=== PATIENT | female | born 1960 | race Caucasian/White ===

== ENCOUNTER 2016-06-22 17:40 | Emergency (ER) | payer OTHER ==
[~2016-06-22] VITALS: Ht 172.7 cm; Wt 75.9 kg
[2016-06-22] VITALS (7 sets, daily range): BP systolic 101–106; BP diastolic 51–59; PULSE 78–89; RESP 20; TEMP 97.6; O2SAT 94–99
[~2016-06-22 17:40] MED LIST: CETI10 PO; CITA20 PO; DOCU1CAP39 PO; DUONI NEB; HYDR-3111 PO; LEVA500T PO; MAGN30S PO; METF500 PO; PRAV20 PO; PRED20 PO; ROBIACUDC PO; SYMB160A INH; THEO200T11 PO; Z.0.OXYGEN INH
[2016-06-22] MEDS ORDERED: MORPHINE SULFATE 4 MG/ML INJ IV PUSH ONE (18:00)
[2016-06-22] MEDS ORDERED: SODIUM CHLORIDE 0.9% FLUSH 10 ML FLUSH IVF PRN (18:00)
[2016-06-22] MEDS ORDERED: RESP: ALBUTEROL 2.5 MG/IPRATROPIUM 0.5 MG NEB (SCH) NEB ONE (18:00)
[2016-06-22 18:06] LABS: AUTOMATED NEUTROPHIL # 6.1 TH/MM3 (1.8-7.7); BASOPHIL # 0.1 TH/MM3 (0-0.2); BASOPHIL % 1.1 % (0.0-2.0); EOSINOPHIL # 0.1 TH/MM3 (0-0.4); HEMO FLAGS DIFF FINAL; LYMPH % 30.3 % (9.0-44.0); LYMPHOCYTE # 3.1 TH/MM3 (1.0-4.8); MEAN CELL VOLUME 90.6 FL (80.0-100.0); MEAN CORPUSCULAR HEMOGLOBIN 30.5 PG (27.0-34.0); MEAN CORPUSCULAR HGB CONC 33.6 % (32.0-36.0); MONO % 6.7 % (0.0-8.0); NEUT % 60.9 % (16.0-70.0); PLATELET COUNT 271 TH/MM3 (150-450); RED BLOOD COUNT 4.64 MIL/MM3 (4.00-5.30); WHITE BLOOD COUNT 10.1 TH/MM3 (4.0-11.0)
--- NOTE | 2016-06-22 18:13 | PD ---
HPI Chief Complaint: Respiratory Symptoms Time Seen by Provider: 17:47 Travel History International Travel<30 days: No Contact w/Intl Traveler<30days: No Traveled to known affect area: No History of Present Illness HPI Is a 56-year-old female with a history of COPD on 2 L of oxygen at home but only at night presents emergency Department with left-sided chest pain. Patient states that she was sitting at home when she took a deep breath she felt something pop on the left side of her chest causing excruciating pain since. On arrival the patient is saturating 88% on room air. She seems to be stenting the left side of her chest. Patient is a history of cough congestion fever nausea vomiting abdominal pain. Symptoms started just prior to arrival, she states severe. PFSH Past Medical History Hx Anticoagulant Therapy: No Arthritis: No Asthma: No Autoimmune Disease: No Anxiety: Yes Depression: No Heart Rhythm Problems: No Cancer: No Cardiovascular Problems: Yes High Cholesterol: Yes Chemotherapy: No Chest Pain: No Congestive Heart Failure: No COPD: Yes Cerebrovascular Accident: No Diabetes: Yes Patient Takes Glucophage: Yes Diminished Hearing: No Endocrine: Yes Gastrointestinal Disorders: No GERD: No Genitourinary: No Headaches: No Hiatal Hernia: No Heparin Induced Thrombocytopen: No Hypertension: No Immune Disorder: No Implanted Vascular Access Dvce: No Kidney Stones: No Musculoskeletal: Yes (right shoulder blood clot) Neurologic: No Psychiatric: No Reproductive: Yes (UTERINE AND OVARIAN CYSTS. ) Respiratory: Yes (COPD) Immunizations Current: Yes Migraines: Yes ( TAKES IMITREX) Radiation Therapy: No Renal Failure: No Seizures: No Sickle Cell Disease: No Sleep Apnea: Yes (O2 2/L NC HS) Thyroid Disease: No Ulcer: No Tetanus Vaccination: Unknown ?: Not Past Surgical History Abdominal Surgery: Yes (APPENDIX REMOVAL) AICD: No Appendectomy: Yes Arteriovenous Shunt: No Cardiac Surgery: No Section: Yes Ear Surgery: No Endocrine Surgery: No Eye Surgery: No Genitourinary Surgery: No Gynecologic Surgery: Yes (HYSTERECTOMY, CSECTION) Hysterectomy: Yes Insulin Pump: No Joint Replacement: No Neurologic Surgery: No Oral Surgery: Yes (ROOT CANAL) Pacemaker: No Thoracic Surgery: No Other Surgery: Yes Social History Alcohol Use: No Tobacco Use: No Substance Use: No Allergies-Medications (Allergen,Severity, Reaction): Coded Allergies: Cortisone (Verified Allergy, Severe, PASSES OUT, 3/15/16) *MDRO Multi-Drug Resistant Organism (Verified Adverse Reaction, Unknown, ) 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 of MRSA in 2012 MRSA PCR screen positive - 05/04/15 Reported Meds & Prescriptions Reported Meds & Active Scripts Active Percocet (Oxycodone-Acetaminophen) 10-325 mg Tab 1 Tab PO Q4H PRN Reported Duoneb (Ipratropium-Albuterol Neb) 0.5-2.5 Mg/3 Ml Neb 1 Nebule INH Q6HR NEB Proair Hfa 8.5 GM Inh (Albuterol Sulfate) 90 Mcg/Act Aer 2 Puff INH Q4-6H PRN 108 mcg/actuation Robaxin (Methocarbamol) 500 Mg Tab 500 Mg PO BID Citalopram (Citalopram Hydrobromide) 10 Mg Tab 10 Mg PO DAILY Theophylline CR (Theophylline) 200 Mg Tab 400 Mg PO DAILY Pravastatin 10 Mg Tab 10 Mg PO DAILY Vicodin Es (Hydrocodone-Acetaminophen) 7.5-300 Tab 1 Tab PO Q6H PRN Zyrtec Allergy (Cetirizine HCl) 10 Mg Cap 10 Mg PO DAILY Metformin (Metformin HCl) 500 Mg Tab 500 Mg PO BIDPC With meals Symbicort Inh (Budesonide/Formoterol Fumarate) 160-4.5 Mcg/Act Aero 2 Puff INH Q12HR Review of Systems Except as stated in HPI: all other systems reviewed are Neg Physical Exam Narrative GENERAL: Well-developed well-nourished, suffering spasms of pain in the left side. SKIN: Focused skin assessment warm/dry. HEAD: Atraumatic. Normocephalic. EYES: Pupils equal and round. No scleral icterus. No injection or drainage. ENT: No nasal bleeding or discharge. Mucous membranes pink and moist. NECK: Trachea midline. No JVD. CARDIOVASCULAR: Regular rate and rhythm. No murmur appreciated. Minimal left sided chest wall tenderness in the midaxillary line. 2+ bilateral equal pulses in all 4 extremity's. RESPIRATORY: No accessory muscle use. Clear to auscultation. Breath sounds equal bilaterally. Slightly decreased aeration. Sitting forward in a tripod position. GASTROINTESTINAL: Abdomen soft, non-tender, nondistended. Hepatic and splenic margins not palpable. MUSCULOSKELETAL: No obvious deformities. No clubbing. No cyanosis. No edema. NEUROLOGICAL: Awake and alert. No obvious cranial nerve deficits. Motor grossly within normal limits. Normal speech. PSYCHIATRIC: Appropriate mood and affect; insight and judgment normal. Data Data Last Documented VS Vital Signs Date Time Temp Pulse Resp B/P Pulse Ox O2 Delivery O2 Flow Rate FiO2 06/22/16 20:34 84 20 104/51 96 Nasal Cannula 4 06/22/16 17:56 97.6 Orders Electrocardiogram (06/22/16 17:47) Ckmb (Isoenzyme) Profile (06/22/16 17:47) Complete Blood Count With Diff (06/22/16 17:47) Comprehensive Metabolic Panel (06/22/16 17:47) Magnesium (Mg) (06/22/16 17:47) Prothrombin Time / Inr (Pt) (06/22/16 17:47) Act Partial Throm Time (Ptt) (06/22/16 17:47) Troponin I (06/22/16 17:47) Ecg Monitoring (06/22/16 17:47) Bilateral Bp Monitoring (06/22/16 17:47) Iv Access Insert/Monitor (06/22/16 17:47) Oximetry (06/22/16 17:47) Oxygen Administration (06/22/16 17:47) Sodium Chloride 0.9% Flush (Ns Flush) (06/22/16 18:00) Morphine Inj (Morphine Inj) (06/22/16 18:00) Albuterol-Ipratropium Neb (Duoneb Neb) (06/22/16 18:00) Chest, Single Ap (06/22/16 ) Cta Thor Abd Aorta W Iv C W3d (06/22/16 ) Hydromorphone Pf Inj (Dilaudid Pf Inj) (06/22/16 18:15) CKMB (06/22/16 17:50) CKMB% (06/22/16 17:50) Arterial Blood Gas (Abg) (06/22/16 ) Iohexol 350 Inj (Omnipaque 350 Inj) (06/22/16 19:09) Electrocardiogram (06/22/16 19:10) Labs Laboratory Tests Test 06/22/16 06/22/16 17:50 19:05 White Blood Count 10.1 TH/MM3 Red Blood Count 4.64 MIL/MM3 Hemoglobin 14.1 GM/DL Hematocrit 42.0 % Mean Corpuscular Volume 90.6 FL Mean Corpuscular Hemoglobin 30.5 PG Mean Corpuscular Hemoglobin 33.6 % Concent Red Cell Distribution Width 13.0 % Platelet Count 271 TH/MM3 Mean Platelet Volume 8.3 FL Neutrophils (%) (Auto) 60.9 % Lymphocytes (%) (Auto) 30.3 % Monocytes (%) (Auto) 6.7 % Eosinophils (%) (Auto) 1.0 % Basophils (%) (Auto) 1.1 % Neutrophils # (Auto) 6.1 TH/MM3 Lymphocytes # (Auto) 3.1 TH/MM3 Monocytes # (Auto) 0.7 TH/MM3 Eosinophils # (Auto) 0.1 TH/MM3 Basophils # (Auto) 0.1 TH/MM3 CBC Comment DIFF FINAL Differential Comment Prothrombin Time 10.0 SEC Prothromb Time International 0.9 RATIO Ratio Activated Partial 24.7 SEC Thromboplast Time Sodium Level 140 MEQ/L Potassium Level 4.0 MEQ/L Chloride Level 103 MEQ/L Carbon Dioxide Level 30.7 MEQ/L Anion Gap 6 MEQ/L Blood Urea Nitrogen 9 MG/DL Creatinine 0.72 MG/DL Estimat Glomerular Filtration 84 ML/MIN Rate Random Glucose 109 MG/DL Calcium Level 9.1 MG/DL Magnesium Level 2.2 MG/DL Total Bilirubin 0.3 MG/DL Aspartate Amino Transf 18 U/L (AST/SGOT) Alanine Aminotransferase 25 U/L (ALT/SGPT) Alkaline Phosphatase 81 U/L Total Creatine Kinase 119 U/L Creatine Kinase MB 1.6 NG/ML Troponin I LESS THAN 0.02 NG/ML Total Protein 7.4 GM/DL Albumin 4.0 GM/DL Blood Gas Puncture Site RT RADIAL Blood Gas Patient Temperature 98.6 Blood Gas HCO3 28 mmol/L Blood Gas Base Excess 3.0 mmol/L Blood Gas Oxygen Saturation 86 % Arterial Blood pH 7.37 Arterial Blood Partial 50 mmHG Pressure CO2 Arterial Blood Partial 64 mmHG Pressure O2 Arterial Blood Oxygen Content 16.2 Vol % Arterial Blood 5.6 % Carboxyhemoglobin Arterial Blood Methemoglobin 1.1 % Blood Gas Hemoglobin 13.4 G/DL Oxygen Delivery Device NASAL CANNULA Blood Gas Liter Flow 2 L/M MDM Medical Decision Making Medical Screen Exam Complete: Yes Emergency Medical Condition: Yes Interpretation(s) EKG shows sinus rhythm. The right bundle-branch block. QRS duration is 126. Borderline prolonged QTC 460. No obvious ST segment changes however interpretation of multiple leads is severely limited by artifact. Differential Diagnosis Rib fracture, dissection, COPD exacerbation, ACS seems less likely, hypoxia. Narrative Course Patient is roomed in the emergency department, she was given morphine 6 mg IV which did not significantly relieve her pain. She does have orders for her chest x-ray as well as a CT aorta which I think is fairly unlikely however does need exclusion. Patient was discussed with Dr. Rider at 1900 shift change to follow-up CAT scan results reassess patient and disposition appropriately. Scripts Oxycodone-Acetaminophen (Percocet)10-325 mg Tab1 Tab PO Q4H PRN (PAIN) #30 TAB Ref 0 Prov:Chano Rider MD 06/22/16 Nathan Brooks MD June 22, 2016 18:13
[2016-06-22 18:14] LABS: CHLORIDE 103 MEQ/L (98-107); SODIUM (NA) 140 MEQ/L (136-145)
[2016-06-22] MEDS ORDERED: HYDROmorphone HCL PF 1 MG/ML VIAL IV PUSH PRN (18:15)
[2016-06-22 18:17] LABS: ANION GAP 6 MEQ/L (5-15); BICARBONATE 30.7 MEQ/L (21.0-32.0); BLOOD UREA NITROGEN 9 MG/DL (7-18); MAGNESIUM 2.2 MG/DL (1.5-2.5)
[2016-06-22 18:19] LABS: APTT (PATIENT) 24.7 SEC (24.3-30.1); INTERNATIONAL NORMALIZED RATIO 0.9 RATIO
[2016-06-22] MEDS ORDERED: ALBUTEROL INH (18:19)
[2016-06-22] MEDS ORDERED: METF500T PO (18:19)
[2016-06-22] MEDS ORDERED: ROBA500T PO (18:19)
[2016-06-22] MEDS ORDERED: THEO200T4 PO (18:19)
[2016-06-22] MEDS ORDERED: PRAV10TA PO (18:19)
[2016-06-22] MEDS ORDERED: SYMB160A INH (18:19)
[2016-06-22] MEDS ORDERED: HYDR-3113 PO (18:19)
[2016-06-22] MEDS ORDERED: ZYRT10CA PO (18:19)
[2016-06-22] MEDS ORDERED: CITA10TA4 PO (18:19)
[2016-06-22] MEDS ORDERED: IPRATROPIUM INH (18:19)
[2016-06-22 18:20] LABS: ALT (GPT) 25 U/L (10-53)
[2016-06-22 18:21] LABS: AST (GOT) 18 U/L (15-37)
[2016-06-22] MEDS ORDERED: O2 INH (18:21)
[2016-06-22] MEDS ORDERED: ALBUAER3 INH (18:21)
[2016-06-22 18:22] LABS: TOTAL BILIRUBIN ADULT 0.3 MG/DL (0.2-1.0)
[2016-06-22 18:23] LABS: ALKALINE PHOSPHATASE 81 U/L (45-117); CREATINE KINASE 119 U/L (26-192)
[2016-06-22 18:29] LABS: GLOMERULAR FILTRATION RATE 84 ML/MIN (>89)
[2016-06-22 18:36] LABS: CKMB 1.6 NG/ML (0.5-3.6)
--- NOTE | 2016-06-22 18:57 | RADHPO ---
EXAM DATE/TIME: 06/22/2016 18:16 [facility] COMPARISON: CHEST SINGLE AP, May 04, 2015, 9:20. INDICATIONS : Patient has been short of breath today. She has had a cough for two days and has caused left sided ri b pain. MEDICAL HISTORY : Diabetes mellitus type II. SURGICAL HISTORY : Total shoulder,right ENCOUNTER: Initial ACUITY: 1 day PAIN SCORE: 10/10 LOCATION: Left Chest and rib. FINDINGS: A single view of the chest demonstrates the lungs to be symmetrically aerated without evidence of mas s, infiltrate or effusion. The cardiomediastinal contours are unremarkable. There is a right shoulde r prosthesis in place. There is a dextrocurvature of the lower thoracic spine. CONCLUSION: No acute disease. Germain Hewitt MD on June 22, 2016 at 18:54 Board Certified Radiologist. This report was verified electronically.
[2016-06-22] MEDS ORDERED: IOHEXOL 350 MG/ML 10 ML VIAL (for RAD DIAG) IV ONE (19:09)
[2016-06-22 19:16] LABS: BLOOD GAS CARBOXYHEMOGLOBIN 5.6 % (0-4); BLOOD GAS HCO3 28 mmol/L (22-26); BLOOD GAS METHEMOGLOBIN 1.1 % (0-2); BLOOD GAS O2 HGB SATURATION 86 % (90-100); BLOOD GAS OXYGEN CONTENT 16.2 Vol % (12.0-20.0); BLOOD GAS PCO2 50 mmHG (38-42); BLOOD GAS PO2 64 mmHG (61-120); BLOOD GAS TOTAL HGB 13.4 G/DL (12.0-16.0); CRITICAL VALUE YES; DRAW SITE RT RADIAL; LITER FLOW 2 L/M; NUMBER OF ARTERIAL PUNCTURES 1; OXYGEN DEVICE NASAL CANNULA; STAT YES; TEMP CORR TO 98.6; ULNAR PULSE Y
--- NOTE | 2016-06-22 19:35 | RADHPO ---
EXAM DATE/TIME: 06/22/2016 18:37 [facility] COMPARISON: CHEST SINGLE AP, June 22, 2016, 18:16. INDICATIONS : Left chest pain. Evaluate for aortic dissection. IV CONTRAST: 85 cc Omnipaque 350 (iohexol) IV RADIATION DOSE: 19.00 CTDIvol (mGy) MEDICAL HISTORY : Chronic obstructive pulmonary disease. Cardiovascular disease Diabetes mellitus type 2. SURGICAL HISTORY : Appendectomy. Hysterectomy. section. ENCOUNTER: Initial ACUITY: 2 days PAIN SCALE: 10/10 LOCATION: Left chest TECHNIQUE: Volumetric scanning was performed using a multi-row detector CT scanner. The data was post processed with a variety of visualization algorithms including full volume maximum intensity projection, multi -planar sliding thin slab reformation, curved planar reformation, and surface rendering techniques. Using automated exposure control and adjustment of the mA and/or kV according to patient size, radiat ion dose was kept as low as reasonably achievable to obtain optimal diagnostic quality images. FINDINGS: CHEST: There is no consolidation or pneumothorax. No concerning pulmonary nodule is visualized. There is e mphysematous change seen throughout the lungs. There some atelectasis at the posterior left lingula. No pleural fluid is present. There is a right shoulder prosthesis in place. MEDIASTINUM: No abnormally enlarged lymph nodes by CT criteria. No axillary or hilar abnormalities are identified. ABDOMEN: There is a 0.8 cm hyperenhancing mass seen in the left lobe of the liver. This is nonspecific. The sp elisha are free of focal defects. The gallbladder and pancreas demonstrate no abnormality. The adrenal glands appear diffusely thickened likely related to hypertrophy. The kidneys demonstrate no evidence of solid renal mass or hydronephrosis. No free fluid or abdominal masses are identified. No para-aort ic adenopathy is seen. Scattered colonic diverticula are seen PELVIS: No evidence of free fluid or pelvic mass. No abnormally enlarged inguinal or retroperitoneal lymph no bladimir are present. The bladder is unremarkable. THORACIC AORTA: The thoracic aortic root is normal with normal branching of the great vessels. There is no evidence of aneurysm or dissection. ABDOMINAL AORTA: The aorta is normal in caliber without aneurysm or dissection. There is minimal plaque at the abdomi nal aorta. The renal arteries are patent bilaterally. The proximal celiac and superior mesenteric ar teries are patent and normal in diameter. PELVIC VESSELS: The internal iliac and external iliac vessels are patent without aneurysm or stenosis. CONCLUSION: 1. No dissection is seen. There is mild plaque of the abdominal aorta without a significant stenosis or aneurysm. 2. Emphysematous change in the lungs. 3. 0.7 cm hyperenhancing mass in the left lobe of the liver. This is nonspecific. It could be followe d up with a MR or CT examination in 3-6 months. 4. Suspected adrenal gland hypertrophy. The adrenal glands appear symmetrically thickened. 5. Scattered colonic diverticula. Germain Hewitt MD on June 22, 2016 at 19:24 Board Certified Radiologist. This report was verified electronically.
--- NOTE | 2016-06-22 19:36 | PD ---
Physical Exam Time Seen by Provider: 19:[address] Brooks left this patient with me to check the results of the CT scan and make a disposition. Data Data Last Documented VS Vital Signs Date Time Temp Pulse Resp B/P Pulse Ox O2 Delivery O2 Flow Rate FiO2 06/22/16 19:31 98 Nasal Cannula 4 06/22/16 19:06 20 06/22/16 19:03 78 105/52 06/22/16 17:56 97.6 Orders Electrocardiogram (06/22/16 17:47) Ckmb (Isoenzyme) Profile (06/22/16 17:47) Complete Blood Count With Diff (06/22/16 17:47) Comprehensive Metabolic Panel (06/22/16 17:47) Magnesium (Mg) (06/22/16 17:47) Prothrombin Time / Inr (Pt) (06/22/16 17:47) Act Partial Throm Time (Ptt) (06/22/16 17:47) Troponin I (06/22/16 17:47) Ecg Monitoring (06/22/16 17:47) Bilateral Bp Monitoring (06/22/16 17:47) Iv Access Insert/Monitor (06/22/16 17:47) Oximetry (06/22/16 17:47) Oxygen Administration (06/22/16 17:47) Sodium Chloride 0.9% Flush (Ns Flush) (06/22/16 18:00) Morphine Inj (Morphine Inj) (06/22/16 18:00) Albuterol-Ipratropium Neb (Duoneb Neb) (06/22/16 18:00) Chest, Single Ap (06/22/16 ) Cta Thor Abd Aorta W Iv C W3d (06/22/16 ) Hydromorphone Pf Inj (Dilaudid Pf Inj) (06/22/16 18:15) CKMB (06/22/16 17:50) CKMB% (06/22/16 17:50) Arterial Blood Gas (Abg) (06/22/16 ) Iohexol 350 Inj (Omnipaque 350 Inj) (06/22/16 19:09) Labs Laboratory Tests Test 06/22/16 06/22/16 17:50 19:05 White Blood Count 10.1 TH/MM3 Red Blood Count 4.64 MIL/MM3 Hemoglobin 14.1 GM/DL Hematocrit 42.0 % Mean Corpuscular Volume 90.6 FL Mean Corpuscular Hemoglobin 30.5 PG Mean Corpuscular Hemoglobin 33.6 % Concent Red Cell Distribution Width 13.0 % Platelet Count 271 TH/MM3 Mean Platelet Volume 8.3 FL Neutrophils (%) (Auto) 60.9 % Lymphocytes (%) (Auto) 30.3 % Monocytes (%) (Auto) 6.7 % Eosinophils (%) (Auto) 1.0 % Basophils (%) (Auto) 1.1 % Neutrophils # (Auto) 6.1 TH/MM3 Lymphocytes # (Auto) 3.1 TH/MM3 Monocytes # (Auto) 0.7 TH/MM3 Eosinophils # (Auto) 0.1 TH/MM3 Basophils # (Auto) 0.1 TH/MM3 CBC Comment DIFF FINAL Differential Comment Prothrombin Time 10.0 SEC Prothromb Time International 0.9 RATIO Ratio Activated Partial 24.7 SEC Thromboplast Time Sodium Level 140 MEQ/L Potassium Level 4.0 MEQ/L Chloride Level 103 MEQ/L Carbon Dioxide Level 30.7 MEQ/L Anion Gap 6 MEQ/L Blood Urea Nitrogen 9 MG/DL Creatinine 0.72 MG/DL Estimat Glomerular Filtration 84 ML/MIN Rate Random Glucose 109 MG/DL Calcium Level 9.1 MG/DL Magnesium Level 2.2 MG/DL Total Bilirubin 0.3 MG/DL Aspartate Amino Transf 18 U/L (AST/SGOT) Alanine Aminotransferase 25 U/L (ALT/SGPT) Alkaline Phosphatase 81 U/L Total Creatine Kinase 119 U/L Creatine Kinase MB 1.6 NG/ML Troponin I LESS THAN 0.02 NG/ML Total Protein 7.4 GM/DL Albumin 4.0 GM/DL Blood Gas Puncture Site RT RADIAL Blood Gas Patient Temperature 98.6 Blood Gas HCO3 28 mmol/L Blood Gas Base Excess 3.0 mmol/L Blood Gas Oxygen Saturation 86 % Arterial Blood pH 7.37 Arterial Blood Partial 50 mmHG Pressure CO2 Arterial Blood Partial 64 mmHG Pressure O2 Arterial Blood Oxygen Content 16.2 Vol % Arterial Blood 5.6 % Carboxyhemoglobin Arterial Blood Methemoglobin 1.1 % Blood Gas Hemoglobin 13.4 G/DL Oxygen Delivery Device NASAL CANNULA Blood Gas Liter Flow 2 L/M [facility] Medical Record Reviewed: Yes Supervised Visit with MAGED: Yes Interpretation(s) The EKG shows sinus rhythm with rate of 72 and right bundle branch block but no acute change. The CBC is normal. The chest x-ray shows no acute disease. The coagulation profile is normal. The complete metabolic profile shows a GFR of 84 but is otherwise normal. The cardiac enzymes are normal. The blood gases on 2 L nasal cannula show pH 7.37, CO2 50, PO2 64 with O2 sat 86%. The carboxy hemoglobin level is 5.6. Differential Diagnosis Fractured rib, pneumothorax, dissecting aneurysm, pleuritic pain, hypoxemia, COPD with acute exacerbation Narrative Course I can completely and very easily reproduce the patient's pain by pressing over a rib on the lateral aspect of the chest wall. No crepitus, neither bony nor air is present. Impression: Chest wall pain, liver nodule Plan: The patient was told to repeat in 3-[address] to check on the status of the liver nodule mention on the CTA. She states she thinks she had this before and it was checked out and is not growing. She was offered admission because of pain but she declined, she wants to try to stay home and I offered to write her Percocet 10 for the pain. She is told to quit smoking. Diagnosis Primary Impression: Chest wall pain Additional Impressions: COPD (chronic obstructive pulmonary disease) Tobacco abuse Additional Instruction: As we discussed, discontinue smoking and follow-up with Dr. Tanner. Do not drink alcohol or drive on the Percocet 10. As we discussed, follow-up on that liver lesion, I gave you the results of all of your lab work and CAT scan results. Take this to your primary care doctor or Dr. Tanner. Med/Other Pt SpecificInfo: Prescription(s) given Scripts Oxycodone-Acetaminophen (Percocet)10-325 mg Tab1 Tab PO Q4H PRN (PAIN) #30 TAB Ref 0 Prov:Chano Rider MD 06/22/16 Disposition: 01 DISCHARGE HOME Condition: Stable Chano Rider MD June 22, 2016 19:36
[2016-06-22] MEDS ORDERED: PERC10TA27 PO (19:49)
--- NOTE | 2016-06-23 15:35 | EKG ---
Date Performed: 06/22/2016 Time Performed: 19:10:00 PTAGE: 56 years EKG: Sinus rhythm Right bundle branch block Abnormal ECG PREVIOUS TRACING : 06/22/2016 18.00 DOCTOR: Sivakumar Davis Interpretating Date/Time 06/23/2016 15:31:03
--- NOTE | 2016-06-23 15:37 | EKG ---
Date Performed: 06/22/2016 Time Performed: 18:00:18 PTAGE: 56 years EKG: Sinus rhythm Incomplete RBBB Right ventricular hypertrophy Abnormal ECG NO PREVIOUS TRACING DOCTOR: Sivakumar Davis Interpretating Date/Time 06/23/2016 15:32:20
[2016-06-23] MEDS ORDERED: IPRASOL INH (21:06)
== END 2016-06-22 20:36 | disposition home or self-care (01) ==
LOC: PHED 17:40
DX: R07.89 Other chest pain (principal); I45.19 Other right bundle-branch block; J44.9 Chronic obstructive pulmonary disease, unspecified; E11.9 Type 2 diabetes mellitus without complications; Z79.84 Long term (current) use of oral hypoglycemic drugs; Z79.899 Other long term (current) drug therapy; Z99.81 Dependence on supplemental oxygen; Z72.0 Tobacco use
CPT/HCPCS: 36600; 71010; 71275; 74174; 80053; 82550; 82552; 82805; 83735; 84484; 85025; 85610; 85730; 93005; 94664; 96374; 96375; 99284; J1170; J2270; Q9967

== ENCOUNTER 2016-07-10 03:29 | Inpatient (IN) | payer OTHER ==
[2016-07-10] VITALS (14 sets, daily range): BP systolic 97–124; BP diastolic 52–71; PULSE 65–100; RESP 16–24; TEMP 96.7–99.7; O2SAT 91–97
[~2016-07-10] VITALS: Ht 172.7 cm; Wt 77.1 kg
[~2016-07-10 03:29] MED LIST changes: +ALBUAER3 INH; -CETI10 PO; +CITA10TA4 PO; -CITA20 PO; -DOCU1CAP39 PO; -DUONI NEB; -HYDR-3111 PO; +HYDR-3113 PO; +IPRASOL INH; -LEVA500T PO; -MAGN30S PO; -METF500 PO; +METF500T PO; +PERC10TA27 PO; +PRAV10TA PO; -PRAV20 PO; -PRED20 PO; +ROBA500T PO; -ROBIACUDC PO; -THEO200T11 PO; +THEO200T4 PO; -Z.0.OXYGEN INH; +ZYRT10CA PO
[2016-07-10] MEDS: RESP: ALBUTEROL 2.5 MG/IPRATROPIUM 0.5 MG NEB (SCH) INH ×5 (03:43→21:08)
[2016-07-10] MEDS ORDERED: methylPREDNISolone SOD SUCC 125 MG/2 ML VIAL IVP ONE (03:45)
[2016-07-10] MEDS ORDERED: METF500T PO (03:52)
[2016-07-10] MEDS ORDERED: PRED5PAK2 PO (03:52)
[2016-07-10 03:55] LABS: AUTOMATED NEUTROPHIL # 8.3 TH/MM3 (1.8-7.7); BASOPHIL % 0.2 % (0.0-2.0); EOSINOPHIL % 0.3 % (0.0-4.0); HEMATOCRIT 43.6 % (35.0-46.0); HEMO FLAGS DIFF FINAL; LYMPH % 19.8 % (9.0-44.0); LYMPHOCYTE # 2.3 TH/MM3 (1.0-4.8); MEAN CORPUSCULAR HEMOGLOBIN 30.9 PG (27.0-34.0); MEAN CORPUSCULAR HGB CONC 33.2 % (32.0-36.0); MONO % 9.1 % (0.0-8.0); NEUT % 70.6 % (16.0-70.0); PLATELET COUNT 258 TH/MM3 (150-450); RED BLOOD COUNT 4.69 MIL/MM3 (4.00-5.30); WHITE BLOOD COUNT 11.7 TH/MM3 (4.0-11.0)
--- NOTE | 2016-07-10 03:56 | PD ---
HPI Chief Complaint: Respiratory Symptoms Time Seen by Provider: 03:35 Travel History International Travel<30 days: No Contact w/Intl Traveler<30days: No Traveled to known affect area: No History of Present Illness HPI 56-year-old female patient with history of COPD, recent visits to her nurse obgyn secondary to poorly controlled COPD over the last 2 months, has been on steroid medications and Levaquin which she just finished today. She states that she had worsening and respiratory problems last night, worsening shortness of breath, coughing. She is also complaining of left-sided chest wall pains. She denies any fevers or any other symptoms. She states she has used her nebulizer several times without significant improvement. Modifying Factors: None Associated Signs & Symptoms: Shortness of breath, left-sided chest wall pain Risk Factors: COPD, recent exacerbations PFSH Past Medical History Hx Anticoagulant Therapy: No Arthritis: No Asthma: No Autoimmune Disease: No Anxiety: Yes Depression: No Heart Rhythm Problems: No Cancer: No Cardiovascular Problems: Yes High Cholesterol: Yes Chemotherapy: No Chest Pain: No Congestive Heart Failure: No COPD: Yes Cerebrovascular Accident: No Diabetes: Yes Patient Takes Glucophage: Yes Diminished Hearing: No Endocrine: Yes Gastrointestinal Disorders: No GERD: No Genitourinary: No Headaches: No Hiatal Hernia: No Heparin Induced Thrombocytopen: No Hypertension: No Immune Disorder: No Implanted Vascular Access Dvce: No Kidney Stones: No Musculoskeletal: Yes (right shoulder blood clot) Neurologic: No Psychiatric: No Reproductive: Yes (UTERINE AND OVARIAN CYSTS. ) Respiratory: Yes (COPD) Immunizations Current: Yes Migraines: Yes ( TAKES IMITREX) Radiation Therapy: No Renal Failure: No Seizures: No Sickle Cell Disease: No Sleep Apnea: Yes (O2 2/L NC HS) Thyroid Disease: No Ulcer: No Tetanus Vaccination: Unknown Influenza Vaccination: Yes ?: Not Past Surgical History Abdominal Surgery: Yes (APPENDIX REMOVAL) AICD: No Appendectomy: Yes Arteriovenous Shunt: No Cardiac Surgery: No Section: Yes Ear Surgery: No Endocrine Surgery: No Eye Surgery: No Genitourinary Surgery: No Gynecologic Surgery: Yes (HYSTERECTOMY, CSECTION) Hysterectomy: Yes Insulin Pump: No Joint Replacement: No Neurologic Surgery: No Oral Surgery: Yes (ROOT CANAL) Pacemaker: No Thoracic Surgery: No Other Surgery: Yes Social History Alcohol Use: No Tobacco Use: Yes (1/2 PPD) Substance Use: No Allergies-Medications (Allergen,Severity, Reaction): Coded Allergies: Cortisone (Verified Allergy, Severe, PASSES OUT, 07/10/16) *MDRO Multi-Drug Resistant Organism (Verified Adverse Reaction, Unknown, ) 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 of MRSA in 2011 MRSA PCR screen positive - 05/04/15 Reported Meds & Prescriptions Reported Meds & Active Scripts Active Reported Prednisone (48) 5 mg tab Dose Pack (Prednisone) 5 Mg Dspk 5 Mg PO DIRECTED Metformin (Metformin HCl) 500 Mg Tab 500 Mg PO DAILY With a meal Duoneb (Ipratropium-Albuterol Neb) 0.5-2.5 Mg/3 Ml Neb 1 Nebule INH Q6HR NEB Proair Hfa 8.5 GM Inh (Albuterol Sulfate) 90 Mcg/Act Aer 2 Puff INH Q4-6H PRN 108 mcg/actuation Robaxin (Methocarbamol) 500 Mg Tab 500 Mg PO BID Citalopram (Citalopram Hydrobromide) 10 Mg Tab 10 Mg PO DAILY Theophylline CR (Theophylline) 200 Mg Tab 400 Mg PO DAILY Pravastatin 10 Mg Tab 10 Mg PO DAILY Vicodin Es (Hydrocodone-Acetaminophen) 7.5-300 Tab 1 Tab PO Q6H PRN Zyrtec Allergy (Cetirizine HCl) 10 Mg Cap 10 Mg PO DAILY Symbicort Inh (Budesonide/Formoterol Fumarate) 160-4.5 Mcg/Act Aero 2 Puff INH Q12HR Review of Systems Except as stated in HPI: all other systems reviewed are Neg Physical Exam Narrative GENERAL: Well-developed middle age white female patient currently in moderate respiratory distress. Awake and oriented 3. SKIN: Focused skin assessment warm/dry. HEAD: Atraumatic. Normocephalic. EYES: Pupils equal and round. No scleral icterus. No injection or drainage. ENT: No nasal bleeding or discharge. Mucous membranes pink and moist. NECK: Trachea midline. No JVD. CARDIOVASCULAR: Regular rate and rhythm. No murmur appreciated. RESPIRATORY: Mild accessory muscle use. Bilateral wheezing throughout. Breath sounds equal bilaterally. GASTROINTESTINAL: Abdomen soft, non-tender, nondistended. Hepatic and splenic margins not palpable. MUSCULOSKELETAL: No obvious deformities. No clubbing. No cyanosis. No edema. NEUROLOGICAL: Awake and alert. No obvious cranial nerve deficits. Motor grossly within normal limits. Normal speech. PSYCHIATRIC: Appropriate mood and affect; insight and judgment normal. Data Data Last Documented VS Vital Signs Date Time Temp Pulse Resp B/P Pulse Ox O2 Delivery O2 Flow Rate FiO2 07/10/16 05:08 20 07/10/16 04:08 100 123/62 92 Nasal Cannula 2 07/10/16 04:08 99.1 Orders Complete Blood Count With Diff (07/10/16 03:35) Comprehensive Metabolic Panel (07/10/16 03:35) B-Type Natriuretic Peptide (07/10/16 03:35) Iv Access Insert/Monitor (07/10/16 03:35) Electrocardiogram (07/10/16 03:35) Ecg Monitoring (07/10/16 03:35) Oximetry (07/10/16 03:35) Oxygen Administration (07/10/16 03:35) Chest, Single Ap (07/10/16 03:35) Sodium Chloride 0.9% Flush (Ns Flush) (07/10/16 03:45) Methylprednisolone So Succ Inj (Solumedr (07/10/16 03:45) Albuterol-Ipratropium Neb (Duoneb Neb) (07/10/16 03:45) Ibuprofen (Motrin) (07/10/16 04:30) Morphine Inj (Morphine Inj) (07/10/16 05:00) Labs Laboratory Tests Test 07/10/16 03:40 White Blood Count 11.7 TH/MM3 Red Blood Count 4.69 MIL/MM3 Hemoglobin 14.5 GM/DL Hematocrit 43.6 % Mean Corpuscular Volume 93.0 FL Mean Corpuscular Hemoglobin 30.9 PG Mean Corpuscular Hemoglobin 33.2 % Concent Red Cell Distribution Width 14.0 % Platelet Count 258 TH/MM3 Mean Platelet Volume 7.7 FL Neutrophils (%) (Auto) 70.6 % Lymphocytes (%) (Auto) 19.8 % Monocytes (%) (Auto) 9.1 % Eosinophils (%) (Auto) 0.3 % Basophils (%) (Auto) 0.2 % Neutrophils # (Auto) 8.3 TH/MM3 Lymphocytes # (Auto) 2.3 TH/MM3 Monocytes # (Auto) 1.1 TH/MM3 Eosinophils # (Auto) 0.0 TH/MM3 Basophils # (Auto) 0.0 TH/MM3 CBC Comment DIFF FINAL Differential Comment Sodium Level 141 MEQ/L Potassium Level 3.5 MEQ/L Chloride Level 102 MEQ/L Carbon Dioxide Level 33.4 MEQ/L Anion Gap 6 MEQ/L Blood Urea Nitrogen 10 MG/DL Creatinine 0.68 MG/DL Estimat Glomerular Filtration 90 ML/MIN Rate Random Glucose 100 MG/DL Calcium Level 8.8 MG/DL Total Bilirubin 0.3 MG/DL Aspartate Amino Transf 19 U/L (AST/SGOT) Alanine Aminotransferase 32 U/L (ALT/SGPT) Alkaline Phosphatase 70 U/L Total Protein 7.2 GM/DL Albumin 3.8 GM/DL MDM Medical Decision Making Medical Screen Exam Complete: Yes Emergency Medical Condition: Yes Medical Record Reviewed: Yes Interpretation(s) Laboratory Tests Test 07/10/16 03:40 White Blood Count 11.7 TH/MM3 (4.0-11.0) Neutrophils (%) (Auto) 70.6 % (16.0-70.0) Monocytes (%) (Auto) 9.1 % (0.0-8.0) Neutrophils # (Auto) 8.3 TH/MM3 (1.8-7.7) Monocytes # (Auto) 1.1 TH/MM3 (0-0.9) Carbon Dioxide Level 33.4 MEQ/L (21.0-32.0) Last 24 hours Impressions Chest X-Ray 07/10/16 0335 Signed Impressions: Service Date/Time: Sunday, July 10, 2016 04:05 - CONCLUSION: No acute cardiopulmonary disease. Shawna Farfan MD Differential Diagnosis Shortness of breathCOPD exacerbation versus pneumonia versus costochondritis versus CHF Narrative Course Chest x-ray did not show any signs of acute pulmonary processes. Lab work was otherwise unremarkable. At this point, patient had been given Solu-Medrol by EMS and several doses of nebulizers significant improvement my plan would be to admit the patient for further treatment. Case is discussed with PIOTR Scott for admission to [facility]. Diagnosis Primary Impression: COPD (chronic obstructive pulmonary disease) Admitting Information Admitting Physician Requests: Admit Ann Stewart MD July 10, 2016 03:56
--- NOTE | 2016-07-10 04:14 | RADHPO ---
EXAM DATE/TIME: 07/10/2016 04:05 [facility] COMPARISON: CHEST SINGLE AP, June 22, 2016, 18:16. INDICATIONS : Short of breath. MEDICAL HISTORY : Chronic obstructive pulmonary disease. Cardiovascular disease. Diabetes mellitus type II. SURGICAL HISTORY : Hysterectomy. Appendectomy. section. Right total shoulder ENCOUNTER: Initial ACUITY: 1 day PAIN SCORE: 5/10 LOCATION: Bilateral chest FINDINGS: The lungs are clear without infiltrate, nodule, or mass. There is no appreciable pleural effusion fo r technique. Heart and mediastinum are unremarkable. CONCLUSION: No acute cardiopulmonary disease. Shawna Farfan MD on July 10, 2016 at 4:12 Board Certified Radiologist. This report was verified electronically.
[2016-07-10 04:19] LABS: CHLORIDE 102 MEQ/L (98-107); POTASSIUM 3.5 MEQ/L (3.5-5.1); SODIUM (NA) 141 MEQ/L (136-145)
[2016-07-10 04:23] LABS: ANION GAP 6 MEQ/L (5-15); BICARBONATE 33.4 MEQ/L (21.0-32.0); BLOOD UREA NITROGEN 10 MG/DL (7-18)
[2016-07-10 04:26] LABS: ALT (GPT) 32 U/L (10-53); AST (GOT) 19 U/L (15-37); GLOMERULAR FILTRATION RATE 90 ML/MIN (>89)
[2016-07-10 04:27] LABS: TOTAL BILIRUBIN ADULT 0.3 MG/DL (0.2-1.0)
[2016-07-10 04:29] LABS: ALKALINE PHOSPHATASE 70 U/L (45-117)
[2016-07-10] MEDS: SODIUM CHLORIDE 0.9% FLUSH 10 ML FLUSH IVF PRN ×2 (04:29→05:07)
[2016-07-10] MEDS ORDERED: IBUPROFEN 600 MG TAB PO ONE (04:30)
[2016-07-10] MEDS ORDERED: MORPHINE SULFATE 4 MG/ML INJ IV PUSH ONE (05:00)
[2016-07-10] MEDS ORDERED: SODIUM CHLORIDE 0.9% FLUSH 10 ML FLUSH IV FLUSH PRN (06:45)
[2016-07-10] MEDS ORDERED: RESP: ALBUTEROL 2.5 MG/3 ML NEB (PRN) INH (06:45)
[2016-07-10] MEDS: SODIUM CHLORIDE 0.9% FLUSH 10 ML FLUSH IV FLUSH SCH ×2 (10:17→20:21)
[2016-07-10] MEDS: ENOXAPARIN SODIUM 40 MG/0.4 ML SYRINGE SQ SCH (10:17)
[2016-07-10] MEDS: methylPREDNISolone SOD SUCC 125 MG/2 ML VIAL IVP SCH ×3 (10:18→20:21)
[2016-07-10] MEDS: ACETAMINOPHEN/HYDROcodone 325 MG/7.5 MG TAB PO PRN ×2 (10:18→18:09)
--- NOTE | 2016-07-10 14:48 | EKG ---
Date Performed: 07/10/2016 Time Performed: 03:47:58 PTAGE: 56 years EKG: Sinus rhythm . RBBB Anterior T wave changes are nonspecific No change from prior tracing Borderline ECG PREVIOUS TRACING on 06/22/16 DOCTOR: Gabo Villatoro Interpretating Date/Time 07/10/2016 14:47:00
[2016-07-10] MEDS: PRAVASTATIN SOD 10 MG TAB PO SCH (22:49)
[2016-07-10] MEDS: METHOCARBAMOL 500 MG TAB PO SCH (22:49)
[2016-07-10] MEDS: CITALOPRAM HYDROBROMIDE 20 MG TAB PO SCH (22:49)
[2016-07-11] VITALS (8 sets, daily range): BP systolic 105–144; BP diastolic 56–72; PULSE 62–83; RESP 16–21; TEMP 96.6–97.7; O2SAT 92–94
[2016-07-11] MEDS: methylPREDNISolone SOD SUCC 125 MG/2 ML VIAL IVP SCH ×4 (02:21→20:39)
[2016-07-11] MEDS: ACETAMINOPHEN/HYDROcodone 325 MG/7.5 MG TAB PO PRN ×4 (03:19→20:38)
[2016-07-11] MEDS: RESP: ALBUTEROL 2.5 MG/IPRATROPIUM 0.5 MG NEB (SCH) INH ×4 (03:29→21:23)
[2016-07-11 07:29] LABS: AUTOMATED NEUTROPHIL # 10.5 TH/MM3 (1.8-7.7); BASOPHIL % 0.2 % (0.0-2.0); EOSINOPHIL # 0.1 TH/MM3 (0-0.4); EOSINOPHIL % 0.8 % (0.0-4.0); HEMATOCRIT 41.3 % (35.0-46.0); HEMO FLAGS DIFF FINAL; LYMPH % 4.8 % (9.0-44.0); LYMPHOCYTE # 0.5 TH/MM3 (1.0-4.8); MEAN CELL VOLUME 93.7 FL (80.0-100.0); MEAN CORPUSCULAR HEMOGLOBIN 31.4 PG (27.0-34.0); MEAN CORPUSCULAR HGB CONC 33.5 % (32.0-36.0); NEUT % 91.2 % (16.0-70.0); PLATELET COUNT 240 TH/MM3 (150-450); RED BLOOD COUNT 4.41 MIL/MM3 (4.00-5.30); RED CELL DISTRIBUTION WIDTH 13.7 % (11.6-17.2); WHITE BLOOD COUNT 11.4 TH/MM3 (4.0-11.0)
[2016-07-11 07:31] LABS: CHLORIDE 103 MEQ/L (98-107); SODIUM (NA) 142 MEQ/L (136-145)
[2016-07-11 07:39] LABS: ANION GAP 11 MEQ/L (5-15); BICARBONATE 28.3 MEQ/L (21.0-32.0); BLOOD UREA NITROGEN 11 MG/DL (7-18)
[2016-07-11 07:42] LABS: ALT (GPT) 25 U/L (10-53); AST (GOT) 11 U/L (15-37)
[2016-07-11 07:43] LABS: GLOMERULAR FILTRATION RATE 122 ML/MIN (>89); TOTAL BILIRUBIN ADULT 0.2 MG/DL (0.2-1.0)
[2016-07-11 07:45] LABS: ALKALINE PHOSPHATASE 63 U/L (45-117)
[2016-07-11] MEDS: METHOCARBAMOL 500 MG TAB PO SCH ×2 (08:35→20:37)
[2016-07-11] MEDS: ENOXAPARIN SODIUM 40 MG/0.4 ML SYRINGE SQ SCH (08:36)
[2016-07-11] MEDS: SODIUM CHLORIDE 0.9% FLUSH 10 ML FLUSH IV FLUSH SCH ×2 (08:36→20:39)
--- NOTE | 2016-07-11 09:16 | MH ---
cc: RICO BOYD MD DATE OF ADMISSION 07/10/2016 CHIEF COMPLAINT Shortness of breath HISTORY OF PRESENT ILLNESS This is a 56-year-old female with a past medical-surgical history significant for COPD, anxiety, hyperlipidemia, diabetes mellitus, diabetes mellitus, history of ovarian cyst, history of migraine headache, history of sleep apnea, status post appendectomy, hysterectomy and in the past and root canal surgery and smoked a half-pack a day for many years. She came to the ER at [facility] complaining of shortness of breath. She saw Dr. Rose psychological science professor and received IV Solu-Medrol and also received IV Levaquin in his office. She has a COPD exacerbation, but she could not improve at Dr. Rose' office and she decided to come to [facility] after getting worse and worse and she has shortness of breath, cough, wheezing and complaining of left-sided chest wall pain. She denies any fever or chills. She states that she used her nebulizer several times without significant improvement. When I examined the patient, the patient was also having the same symptom, but she said she is a little improved since she came to the ER. Other than that, nothing significant. PAST MEDICAL AND SURGICAL HISTORY As dictated above. SOCIAL HISTORY Denies drinking. Smokes a half-pack a day for many years. Denies any drug abuse. Lives at home. FAMILY HISTORY Significant for coronary artery disease. ALLERGIES CORTISONE MEDICATIONS Include: 1. Prednisone 5 mg p.o. pack as directed 2. Metformin 500 mg p.o. daily 3. DuoNeb nebulization q6h 4. ProAir HFA two puff inhalation q4-6h 5. Robaxin 500 mg p.o. b.i.d. 6. Citalopram 10 mg p.o. daily 7. Theophylline 400 mg p.o. daily 8. Pravastatin 10 mg daily 9. Vicodin ES 7 puffs 5/300 p.o. q.6h 10. Zyrtec allergy 10 mg p.o. daily 11. Symbicort 160/4.5 mcg two puff inhalation [id number] REVIEW OF SYSTEMS Positive for cough, shortness of breath, wheezing, feeling weak and tired. All other review of systems are negative. PHYSICAL EXAMINATION This is a 56-year female sitting on the bed not in acute distress. VITAL SIGNS: Temperature 97.6, heart rate 62, respirations 16, blood pressure 144/69, O2 saturation 94% on two liters nasal cannula. HEENT: Normocephalic, atraumatic. EOMI. PERRL. Oral mucosa moist. NECK: Supple. No visible thyromegaly or neck mass. Trachea is central. CARDIOVASCULAR: Regular rate and rhythm. RESPIRATORY: Bilateral wheezing and crackles. Decreased air entry bilaterally. ABDOMEN: Soft, nontender. Bowel sounds audible. EXTREMITIES: No cyanosis or clubbing. Full range of motion of all extremities. NEUROLOGIC: Awake, alert, and oriented x4. No focal deficits. SKIN: Warm and dry. PSYCH: The patient is cooperative. Mood and affect are normal. LABORATORY DATA Include CBC showed WBC count 11.4 high, hemoglobin 13.8, hematocrit 41.3, platelet count 240, neutrophil is 91.2 high lymph is 4.8 low. BMP totally unremarkable except for glucose of 154 high. LFTs are normal. Albumin low 3.2. Chest x-ray was done and shows no acute cardiopulmonary disease. ASSESSMENT/PLAN 1. This is a 56-year female who came to the ER diagnosed with shortness of breath, cough and wheezing secondary to COPD exacerbation. The patient is on DuoNeb nebulization. I will start the patient on Rocephin one gram IV daily and Zithromax 500 mg IV daily. The patient is also on Solu-Medrol 60 mg IV q6-hour. Consult pulmonary for further recommendation per pulmonary. 2. History of hyperlipidemia. Continue home medications. 3. History of depression. Continue home medication. 4. History of arthritis. Continue home medication. 5. History of COPD. Continue the home medication. 6. Diabetes mellitus ADA 1800 calorie diet, NovoLog sliding scale, check blood sugars at bedtime and monitor blood sugar closely. 7. DVT prophylaxis heparin 5000 units subcutaneous twice a day. 8. GI prophylaxis Protonix 40 mg p.o. daily. 9. We are going to manage the patient on a daily basis and make recommendation on a daily basis. Rico Boyd MD EA/MILAGRO /8:38 AM 9:06 AM
--- NOTE | 2016-07-11 09:29 | HHI.PR ---
Subjective History of Present Illness Patient have Shortness of breath cough/ wheezing. no other issue. Review of Systems Constitutional Constitutional: Fatigue, Weakness Pulmonary Respiratory: Coughing, Shortness of Breath, Wheezing Vitals/Results Intake & Output 07/10/16 07/10/16 07/11/16 14:59 22:59 06:59 Intake Total 600 ml 660 ml Balance 600 ml 660 ml Intake Oral 600 ml 660 ml # Voids 7 # Bowel Movements 2 Vital Signs Vital Signs Date Time Temp Pulse Resp B/P Pulse Ox O2 Delivery O2 Flow Rate FiO2 07/11/16 09:23 92 Nasal Cannula 2.00 07/11/16 08:23 Nasal Cannula 2.00 07/11/16 05:37 96.6 62 16 144/69 94 07/11/16 00:00 97.6 71 16 110/70 94 07/10/16 21:08 92 Nasal Cannula 2.00 07/10/16 20:00 94 Nasal Cannula 2.00 07/10/16 20:00 96.7 77 16 115/71 94 07/10/16 16:00 97.7 70 18 100/66 97 07/10/16 12:00 97.8 72 18 99/67 96 07/10/16 11:20 16 07/10/16 10:18 94 Nasal Cannula 2.00 CBC/BMP: 07/11/16 0643 07/11/16 0643 Lab Results Laboratory Tests Test 07/11/16 06:43 White Blood Count 11.4 TH/MM3 Red Blood Count 4.41 MIL/MM3 Hemoglobin 13.8 GM/DL Hematocrit 41.3 % Mean Corpuscular Volume 93.7 FL Mean Corpuscular Hemoglobin 31.4 PG Mean Corpuscular Hemoglobin 33.5 % Concent Red Cell Distribution Width 13.7 % Platelet Count 240 TH/MM3 Mean Platelet Volume 8.2 FL Neutrophils (%) (Auto) 91.2 % Lymphocytes (%) (Auto) 4.8 % Monocytes (%) (Auto) 3.0 % Eosinophils (%) (Auto) 0.8 % Basophils (%) (Auto) 0.2 % Neutrophils # (Auto) 10.5 TH/MM3 Lymphocytes # (Auto) 0.5 TH/MM3 Monocytes # (Auto) 0.3 TH/MM3 Eosinophils # (Auto) 0.1 TH/MM3 Basophils # (Auto) 0.0 TH/MM3 CBC Comment DIFF FINAL Differential Comment Sodium Level 142 MEQ/L Potassium Level 4.0 MEQ/L Chloride Level 103 MEQ/L Carbon Dioxide Level 28.3 MEQ/L Anion Gap 11 MEQ/L Blood Urea Nitrogen 11 MG/DL Creatinine 0.52 MG/DL Estimat Glomerular Filtration 122 ML/MIN Rate Random Glucose 154 MG/DL Calcium Level 9.1 MG/DL Total Bilirubin 0.2 MG/DL Aspartate Amino Transf 11 U/L (AST/SGOT) Alanine Aminotransferase 25 U/L (ALT/SGPT) Alkaline Phosphatase 63 U/L Total Protein 6.5 GM/DL Albumin 3.2 GM/DL Physical Exam General General Appearance: Well Developed, Well Nourished, Comfortable Eyes Eye Exam: Pupils Equal, Pupils Reactive, Sclera White, Extraocular Movement Intact Throat Throat Exam: Oral Mucosa [place] & Moist, Oral Pharynx Normal Neck Neck Exam: Neck Supple, Trachea Midline Pulmonary Resp Exam: Crackles, Rhonchi, Diminished Breath Sounds Resp Remarks Bilateral wheezing. Cardiology CV Exam: Regular, Normal Sinus Rhythm Gastrointestinal/Abdomen GI Exam: Soft, Non-Tender, Bowel Sounds Present Musculoskeletal MS Exam: Normal Tone Integumentary Skin Exam: Clear, Warm, Dry, Intact Extremeties Extremities Exam: No Edema Neurologic Neuro Exam: Alert, Awake, Oriented, Speech Clear, Moving All Extremities, No Focal Deficits Psychiatric Psych Exam: Appropriate Responses VTE Prophylaxis VTE Prophylaxis Meds: Heparin PUD Prophylasis PUD Prophylaxis: Protonix Assessment/Plan Assessment/Plan ASSESSMENT/PLAN 1. This is a 56-year female who came to the ER diagnosed with shortness of breath, cough and wheezing secondary to COPD exacerbation. The patient is on DuoNeb nebulization. patient on Rocephin one gram IV daily and Zithromax 500 mg IV daily. The patient is also on Solu-Medrol 60 mg IV q6-hour. Consult pulmonary for further recommendation per pulmonary. 2. History of hyperlipidemia. Continue home medications. 3. History of depression. Continue home medication. 4. History of arthritis. Continue home medication. 5. History of COPD. Continue the home medication. 6. Diabetes mellitus ADA 1800 calorie diet, NovoLog sliding scale, check blood sugars at bedtime and monitor blood sugar closely. 7. DVT prophylaxis heparin 5000 units subcutaneous twice a day. 8. GI prophylaxis Protonix 40 mg p.o. daily. 9. We are going to manage the patient on a daily basis and make recommendation on a daily basis. Discussed Condition with: Patient Rico Granger MD July 11, 2016 09:29
[2016-07-11] MEDS: AZITHROMYCIN INJ 500 MG in SODIUM CHLOR 0.9% 250 ML INJ 250 ML IV SCH (11:38)
[2016-07-11] MEDS: cefTRIAXone INJ 1,000 MG in SODIUM CHLORIDE 0.9% INJ 100 ML IV SCH (11:38)
[2016-07-11] MEDS: PRAVASTATIN SOD 10 MG TAB PO SCH (20:37)
[2016-07-11] MEDS: CITALOPRAM HYDROBROMIDE 20 MG TAB PO SCH (20:37)
--- NOTE | 2016-07-11 21:55 | MB ---
cc: YANY SLADE M.D. DATE OF CONSULTATION: 07/11/2016 REASON FOR CONSULTATION: Exacerbation COPD. HISTORY OF PRESENT ILLNESS Mrs. Payton is a 56-year-old female with known history of COPD, obstructive sleep apnea, diabetes mellitus, anxiety and hyperlipidemia. She is diabetic, complains of increasing shortness of breath, cough, whitish yellow sputum, was seen by Dr. Rose at his office where she was given IV therapy in the office, however, had failed to improve. She comes to the emergency room with exacerbation of COPD and a clear chest x-ray, hospitalized for same. PAST MEDICAL HISTORY: 1. COPD 2. Diabetes mellitus 3. Hypertension 4. Hyperlipidemia. 5. Mood disorder namely anxiety. 6. Migraine headaches. 7. Obstructive sleep apnea. SOCIAL HISTORY Smokes half a pack of cigarettes a day for over 30 years. She does not drink any alcohol, does not use drugs. FAMILY HISTORY Noncontributory. REVIEW OF SYSTEMS 12-point review of systems as per HPI and past history otherwise negative. ALLERGIES Question cortisone MEDICATIONS Medications at home include: 1. Prednisone 5 mg daily. 2. Metformin. 3. DuoNeb 4. ProAir. 5. Robaxin 6. Citalopram. 7. Theophylline. 8. Pravastatin. 9. Vicodin. 10. Zyrtec 11. Symbicort. PHYSICAL EXAMINATION: The patient is alert. VITAL SIGNS: Temperature 98, pulse 80, respiratory rate 18, blood pressure 140/70, oxygen saturation 94% on O2, two liters by nasal cannula. HEENT: Unremarkable. Eyes: Without icterus. NECK: Without adenopathy or thyroid enlargement. CHEST: Scattered rhonchi bilaterally. CARDIAC: PMI distant, S1-S2 audible. No murmur, no rub. ABDOMEN: Lax, bowel sounds audible. EXTREMITIES: No clubbing, cyanosis or edema. LABORATORY DATA: White count is 11,000, hemoglobin 13, hematocrit 41, platelet count 240,000. Sodium 142, potassium 4.0, BUN 11, creatinine 0.5. Chest x-ray: No acute infiltrate. IMPRESSION: COPD exacerbation. Diabetes mellitus. PLAN The patient will be maintained on oxygen therapy as needed. Bronchodilator therapy has been initiated and appropriately so. IV steroids have been given, well tolerated by the patient. She has improved, however, still has cough with yellowish mucoid secretion and exertional dyspnea. Will continue IV therapy. At present she is improving, then change her to oral therapy. The patient will obtain pulmonary functions when stable. I do thank you for asking me to partake in Ms. Payton's care. Yany Slade MD WWW/ROSALINDA /8:37 PM /8:53 PM
[2016-07-11 23:09] LABS: BLOOD GAS CARBOXYHEMOGLOBIN 1.6 % (0-4); BLOOD GAS HCO3 27 mmol/L (22-26); BLOOD GAS O2 HGB SATURATION 85 % (90-100); BLOOD GAS PCO2 43 mmHG (38-42); BLOOD GAS PO2 54 mmHG (61-120); BLOOD GAS TOTAL HGB 14.2 G/DL (12.0-16.0); TEMP CORR TO 98.6
[2016-07-11 23:10] LABS: CRITICAL VALUE YES; DRAW SITE LT RADIAL; FIO2 21 %; NUMBER OF ARTERIAL PUNCTURES 1; STAT NO; ULNAR PULSE Y
[2016-07-12] VITALS (7 sets, daily range): BP systolic 116–142; BP diastolic 63–84; PULSE 75–88; RESP 18–21; TEMP 95.9–96.6; O2SAT 91–97
[2016-07-12] MEDS: ACETAMINOPHEN/HYDROcodone 325 MG/7.5 MG TAB PO PRN ×5 (00:45→22:15)
[2016-07-12] MEDS: methylPREDNISolone SOD SUCC 125 MG/2 ML VIAL IVP SCH ×3 (02:07→12:52)
[2016-07-12] MEDS: RESP: ALBUTEROL 2.5 MG/IPRATROPIUM 0.5 MG NEB (SCH) INH ×4 (03:24→22:17)
[2016-07-12 07:38] LABS: EOSINOPHIL # 0.1 TH/MM3 (0-0.4); EOSINOPHIL % 0.7 % (0.0-4.0); HEMATOCRIT 42.1 % (35.0-46.0); HEMO FLAGS DIFF FINAL; LYMPH % 4.8 % (9.0-44.0); LYMPHOCYTE # 0.7 TH/MM3 (1.0-4.8); MEAN CELL VOLUME 92.2 FL (80.0-100.0); MEAN CORPUSCULAR HEMOGLOBIN 31.1 PG (27.0-34.0); MEAN CORPUSCULAR HGB CONC 33.7 % (32.0-36.0); MONO % 1.8 % (0.0-8.0); NEUT % 92.7 % (16.0-70.0); PLATELET COUNT 273 TH/MM3 (150-450); RED BLOOD COUNT 4.56 MIL/MM3 (4.00-5.30); RED CELL DISTRIBUTION WIDTH 13.9 % (11.6-17.2); WHITE BLOOD COUNT 15.1 TH/MM3 (4.0-11.0)
[2016-07-12 07:49] LABS: CHLORIDE 101 MEQ/L (98-107); POTASSIUM 4.1 MEQ/L (3.5-5.1); SODIUM (NA) 142 MEQ/L (136-145)
[2016-07-12 07:54] LABS: ANION GAP 10 MEQ/L (5-15); BICARBONATE 31.2 MEQ/L (21.0-32.0)
[2016-07-12 07:55] LABS: BLOOD UREA NITROGEN 14 MG/DL (7-18)
[2016-07-12 07:57] LABS: ALT (GPT) 49 U/L (10-53)
[2016-07-12] MEDS: METHOCARBAMOL 500 MG TAB PO SCH ×2 (07:57→20:57)
[2016-07-12] MEDS: ENOXAPARIN SODIUM 40 MG/0.4 ML SYRINGE SQ SCH (07:57)
[2016-07-12] MEDS: AZITHROMYCIN INJ 500 MG in SODIUM CHLOR 0.9% 250 ML INJ 250 ML IV SCH (08:03)
[2016-07-12] MEDS: cefTRIAXone INJ 1,000 MG in SODIUM CHLORIDE 0.9% INJ 100 ML IV SCH (08:03)
--- NOTE | 2016-07-12 08:33 | HHI.PR ---
Subjective History of Present Illness Patient Shortness of breath cough/ wheezing. getting better...no other issue. Review of Systems Constitutional Constitutional: Fatigue, Weakness Pulmonary Respiratory: Coughing, Shortness of Breath, Wheezing Vitals/Results Intake & Output 07/11/16 07/11/16 07/12/16 15:00 23:00 07:00 Intake Total 360 ml 700 ml 720 ml Output Total 1 ml Balance 360 ml 699 ml 720 ml Intake Oral 360 ml 700 ml 720 ml Output Stool Total 1 ml # Voids 2 6 2 # Bowel Movements 0 Vital Signs Vital Signs Date Time Temp Pulse Resp B/P Pulse Ox O2 Delivery O2 Flow Rate FiO2 07/12/16 00:00 96.5 75 20 118/72 93 07/11/16 23:20 Nasal Cannula 2.00 07/11/16 23:19 20 07/11/16 21:25 93 Nasal Cannula 2.00 07/11/16 20:15 Nasal Cannula 2.00 07/11/16 20:00 97.2 83 21 110/72 92 07/11/16 16:00 97.7 80 18 105/56 94 07/11/16 12:00 97.2 80 18 110/60 93 07/11/16 09:23 92 Nasal Cannula 2.00 CBC/BMP: 07/12/16 0650 07/12/16 0650 Lab Results Laboratory Tests Test 07/11/16 07/12/16 22:57 06:50 Blood Gas Puncture Site LT RADIAL Blood Gas Patient Temperature 98.6 Blood Gas HCO3 27 mmol/L Blood Gas Base Excess 3.0 mmol/L Blood Gas Oxygen Saturation 85 % Arterial Blood pH 7.42 Arterial Blood Partial 43 mmHG Pressure CO2 Arterial Blood Partial 54 mmHG Pressure O2 Arterial Blood Oxygen Content 17.0 Vol % Arterial Blood 1.6 % Carboxyhemoglobin Arterial Blood Methemoglobin 1.0 % Blood Gas Hemoglobin 14.2 G/DL Blood Gas Inspired Oxygen 21 % White Blood Count 15.1 TH/MM3 Red Blood Count 4.56 MIL/MM3 Hemoglobin 14.2 GM/DL Hematocrit 42.1 % Mean Corpuscular Volume 92.2 FL Mean Corpuscular Hemoglobin 31.1 PG Mean Corpuscular Hemoglobin 33.7 % Concent Red Cell Distribution Width 13.9 % Platelet Count 273 TH/MM3 Mean Platelet Volume 8.1 FL Neutrophils (%) (Auto) 92.7 % Lymphocytes (%) (Auto) 4.8 % Monocytes (%) (Auto) 1.8 % Eosinophils (%) (Auto) 0.7 % Basophils (%) (Auto) 0.0 % Neutrophils # (Auto) 14.0 TH/MM3 Lymphocytes # (Auto) 0.7 TH/MM3 Monocytes # (Auto) 0.3 TH/MM3 Eosinophils # (Auto) 0.1 TH/MM3 Basophils # (Auto) 0.0 TH/MM3 CBC Comment DIFF FINAL Differential Comment Sodium Level 142 MEQ/L Potassium Level 4.1 MEQ/L Chloride Level 101 MEQ/L Carbon Dioxide Level 31.2 MEQ/L Anion Gap 10 MEQ/L Blood Urea Nitrogen 14 MG/DL Random Glucose 144 MG/DL Calcium Level 9.1 MG/DL Alanine Aminotransferase 49 U/L (ALT/SGPT) Albumin 3.2 GM/DL Physical Exam General General Appearance: Well Developed, Well Nourished, Comfortable Eyes Eye Exam: Pupils Equal, Pupils Reactive, Sclera White, Extraocular Movement Intact Throat Throat Exam: Oral Mucosa [place] & Moist, Oral Pharynx Normal Neck Neck Exam: Neck Supple, Trachea Midline Pulmonary Resp Exam: Crackles, Rhonchi, Diminished Breath Sounds Resp Remarks Bilateral wheezing. Cardiology CV Exam: Regular, Normal Sinus Rhythm Gastrointestinal/Abdomen GI Exam: Soft, Non-Tender, Bowel Sounds Present Musculoskeletal MS Exam: Normal Tone Integumentary Skin Exam: Clear, Warm, Dry, Intact Extremeties Extremities Exam: No Edema Neurologic Neuro Exam: Alert, Awake, Oriented, Speech Clear, Moving All Extremities, No Focal Deficits Psychiatric Psych Exam: Appropriate Responses VTE Prophylaxis VTE Prophylaxis Meds: Heparin PUD Prophylasis PUD Prophylaxis: Protonix Assessment/Plan Assessment/Plan ASSESSMENT/PLAN 1. This is a 56-year female who came to the ER diagnosed with shortness of breath, cough and wheezing secondary to COPD exacerbation. The patient is on DuoNeb nebulization. patient on Rocephin one gram IV daily and Zithromax 500 mg IV daily. The patient is also on Solu-Medrol 40 mg IV q6-hour. Consult pulmonary for further recommendation per pulmonary. 2. History of hyperlipidemia. Continue home medications. 3. History of depression. Continue home medication. 4. History of arthritis. Continue home medication. 5. History of COPD. Continue the home medication. 6. Diabetes mellitus ADA 1800 calorie diet, NovoLog sliding scale, check blood sugars at bedtime and monitor blood sugar closely. 7. DVT prophylaxis heparin 5000 units subcutaneous twice a day. 8. GI prophylaxis Protonix 40 mg p.o. daily. 9. We are going to manage the patient on a daily basis and make recommendation on a daily basis. Check CBC with diff CMP in AM. Discussed Condition with: Patient Rico Granger MD July 12, 2016 08:33
[2016-07-12 08:42] LABS: GLOMERULAR FILTRATION RATE 103 ML/MIN (>89); TOTAL BILIRUBIN ADULT 0.2 MG/DL (0.2-1.0)
[2016-07-12 08:43] LABS: ALKALINE PHOSPHATASE 60 U/L (45-117); AST (GOT) 31 U/L (15-37)
[2016-07-12] MEDS: SODIUM CHLORIDE 0.9% FLUSH 10 ML FLUSH IV FLUSH SCH ×2 (08:52→20:58)
[2016-07-12] MEDS: methylPREDNISolone SOD SUCC 40 MG/1 ML VIAL IV SCH (20:57)
[2016-07-12] MEDS: PRAVASTATIN SOD 10 MG TAB PO SCH (20:58)
[2016-07-12] MEDS: CITALOPRAM HYDROBROMIDE 20 MG TAB PO SCH (20:58)
[2016-07-13] VITALS (7 sets, daily range): BP systolic 121–150; BP diastolic 58–90; PULSE 71–103; RESP 16–20; TEMP 96.6–98.7; O2SAT 91–97
[2016-07-13] MEDS: methylPREDNISolone SOD SUCC 40 MG/1 ML VIAL IV SCH ×4 (02:00→21:10)
[2016-07-13] MEDS: ACETAMINOPHEN/HYDROcodone 325 MG/7.5 MG TAB PO PRN ×5 (02:15→22:20)
[2016-07-13] MEDS: RESP: ALBUTEROL 2.5 MG/IPRATROPIUM 0.5 MG NEB (SCH) INH ×4 (03:38→21:30)
[2016-07-13 06:37] LABS: CHLORIDE 102 MEQ/L (98-107); SODIUM (NA) 143 MEQ/L (136-145)
[2016-07-13 06:41] LABS: ANION GAP 10 MEQ/L (5-15); AUTOMATED NEUTROPHIL # 12.1 TH/MM3 (1.8-7.7); BASOPHIL % 0.1 % (0.0-2.0); BICARBONATE 31.1 MEQ/L (21.0-32.0); BLOOD UREA NITROGEN 16 MG/DL (7-18); EOSINOPHIL % 0.1 % (0.0-4.0); HEMATOCRIT 41.4 % (35.0-46.0); LYMPH % 5.8 % (9.0-44.0); LYMPHOCYTE # 0.8 TH/MM3 (1.0-4.8); MEAN CELL VOLUME 91.9 FL (80.0-100.0); MEAN CORPUSCULAR HEMOGLOBIN 31.5 PG (27.0-34.0); MEAN CORPUSCULAR HGB CONC 34.3 % (32.0-36.0); MONO % 1.7 % (0.0-8.0); NEUT % 92.3 % (16.0-70.0); PLATELET COUNT 236 TH/MM3 (150-450); RED BLOOD COUNT 4.51 MIL/MM3 (4.00-5.30); RED CELL DISTRIBUTION WIDTH 12.9 % (11.6-17.2); WHITE BLOOD COUNT 13.1 TH/MM3 (4.0-11.0)
[2016-07-13 06:49] LABS: HEMO FLAGS DIFF FINAL
[2016-07-13 06:56] LABS: ALKALINE PHOSPHATASE 56 U/L (45-117); ALT (GPT) 74 U/L (10-53); AST (GOT) 40 U/L (15-37); GLOMERULAR FILTRATION RATE 122 ML/MIN (>89); TOTAL BILIRUBIN ADULT 0.2 MG/DL (0.2-1.0)
--- NOTE | 2016-07-13 08:12 | HHI.PR ---
Subjective History of Present Illness Patient Shortness of breath cough/ wheezing. getting better...no other issue. Review of Systems Constitutional Constitutional: Fatigue, Weakness Pulmonary Respiratory: Coughing, Shortness of Breath, Wheezing Vitals/Results Intake & Output 07/12/16 07/12/16 07/13/16 15:00 23:00 07:00 Intake Total 660 ml Balance 660 ml Intake Oral 660 ml # Voids 4 6 # Bowel Movements 0 3 Vital Signs Vital Signs Date Time Temp Pulse Resp B/P Pulse Ox O2 Delivery O2 Flow Rate FiO2 07/13/16 00:00 96.6 77 18 121/82 97 07/12/16 23:54 Nasal Cannula 2.00 07/12/16 22:15 92 Nasal Cannula 2.00 07/12/16 20:00 95.9 88 18 139/84 97 07/12/16 16:00 96.6 75 21 134/77 92 07/12/16 12:37 2.00 07/12/16 12:00 96.4 85 20 116/74 92 07/12/16 09:39 92 Nasal Cannula 2.00 CBC/BMP: 07/13/16 0511 07/13/16 0511 Lab Results Laboratory Tests Test 07/13/16 05:11 White Blood Count 13.1 TH/MM3 Red Blood Count 4.51 MIL/MM3 Hemoglobin 14.2 GM/DL Hematocrit 41.4 % Mean Corpuscular Volume 91.9 FL Mean Corpuscular Hemoglobin 31.5 PG Mean Corpuscular Hemoglobin 34.3 % Concent Red Cell Distribution Width 12.9 % Platelet Count 236 TH/MM3 Mean Platelet Volume 8.4 FL Neutrophils (%) (Auto) 92.3 % Lymphocytes (%) (Auto) 5.8 % Monocytes (%) (Auto) 1.7 % Eosinophils (%) (Auto) 0.1 % Basophils (%) (Auto) 0.1 % Neutrophils # (Auto) 12.1 TH/MM3 Lymphocytes # (Auto) 0.8 TH/MM3 Monocytes # (Auto) 0.2 TH/MM3 Eosinophils # (Auto) 0.0 TH/MM3 Basophils # (Auto) 0.0 TH/MM3 CBC Comment DIFF FINAL Differential Comment Sodium Level 143 MEQ/L Potassium Level 4.0 MEQ/L Chloride Level 102 MEQ/L Carbon Dioxide Level 31.1 MEQ/L Anion Gap 10 MEQ/L Blood Urea Nitrogen 16 MG/DL Creatinine 0.52 MG/DL Estimat Glomerular Filtration 122 ML/MIN Rate Random Glucose 149 MG/DL Calcium Level 8.5 MG/DL Total Bilirubin 0.2 MG/DL Aspartate Amino Transf 40 U/L (AST/SGOT) Alanine Aminotransferase 74 U/L (ALT/SGPT) Alkaline Phosphatase 56 U/L Total Protein 6.3 GM/DL Albumin 3.1 GM/DL Physical Exam General General Appearance: Well Developed, Well Nourished, Comfortable Eyes Eye Exam: Pupils Equal, Pupils Reactive, Sclera White, Extraocular Movement Intact Throat Throat Exam: Oral Mucosa [place] & Moist, Oral Pharynx Normal Neck Neck Exam: Neck Supple, Trachea Midline Pulmonary Resp Exam: Crackles, Rhonchi, Diminished Breath Sounds Resp Remarks Bilateral wheezing. Cardiology CV Exam: Regular, Normal Sinus Rhythm Gastrointestinal/Abdomen GI Exam: Soft, Non-Tender, Bowel Sounds Present Musculoskeletal MS Exam: Normal Tone Integumentary Skin Exam: Clear, Warm, Dry, Intact Extremeties Extremities Exam: No Edema Neurologic Neuro Exam: Alert, Awake, Oriented, Speech Clear, Moving All Extremities, No Focal Deficits Psychiatric Psych Exam: Appropriate Responses VTE Prophylaxis VTE Prophylaxis Meds: Heparin PUD Prophylasis PUD Prophylaxis: Protonix Assessment/Plan Assessment/Plan ASSESSMENT/PLAN 1. This is a 56-year female who came to the ER diagnosed with shortness of breath, cough and wheezing secondary to COPD exacerbation. The patient is on DuoNeb nebulization. patient on Rocephin one gram IV daily and Zithromax 500 mg IV daily. The patient is also on Solu-Medrol 40 mg IV q6-hour. pulmonary input noted for further recommendation per pulmonary. 2. History of hyperlipidemia. Continue home medications. 3. History of depression. Continue home medication. 4. History of arthritis. Continue home medication. 5. History of COPD. Continue the home medication. 6. Diabetes mellitus ADA 1800 calorie diet, NovoLog sliding scale, check blood sugars at bedtime and monitor blood sugar closely. 7. DVT prophylaxis heparin 5000 units subcutaneous twice a day. 8. GI prophylaxis Protonix 40 mg p.o. daily. 9. We are going to manage the patient on a daily basis and make recommendation on a daily basis. Check CBC with diff CMP in AM. Discussed Condition with: Patient Rico Granger MD July 13, 2016 08:12
[2016-07-13] MEDS: METHOCARBAMOL 500 MG TAB PO SCH ×2 (09:15→21:11)
[2016-07-13] MEDS: ENOXAPARIN SODIUM 40 MG/0.4 ML SYRINGE SQ SCH (09:15)
[2016-07-13] MEDS: cefTRIAXone INJ 1,000 MG in SODIUM CHLORIDE 0.9% INJ 100 ML IV SCH (09:16)
[2016-07-13] MEDS: SODIUM CHLORIDE 0.9% FLUSH 10 ML FLUSH IV FLUSH SCH ×2 (09:16→21:10)
[2016-07-13] MEDS: AZITHROMYCIN INJ 500 MG in SODIUM CHLOR 0.9% 250 ML INJ 250 ML IV SCH (10:07)
--- NOTE | 2016-07-13 13:57 | HHI.PR ---
Subjective Remarks alert still with cough and wheeze Objective Vital Signs Date Time Temp Pulse Resp B/P Pulse Ox O2 Delivery O2 Flow Rate FiO2 07/13/16 12:00 96.9 80 16 121/70 92 07/13/16 11:07 18 07/13/16 09:39 92 Nasal Cannula 2.00 07/13/16 08:00 Nasal Cannula 2.00 07/13/16 08:00 96.6 71 16 125/75 91 07/13/16 00:00 96.6 77 18 121/82 97 07/12/16 23:54 Nasal Cannula 2.00 07/12/16 22:15 92 Nasal Cannula 2.00 07/12/16 20:00 95.9 88 18 139/84 97 07/12/16 16:00 96.6 75 21 134/77 92 I/O 07/12/16 07/12/16 07/12/16 07/13/16 07/13/16 07/13/16 07:00 15:00 23:00 07:00 15:00 23:00 Intake Total 720 ml 660 ml Balance 720 ml 660 ml Intake Oral 720 ml 660 ml # Voids 2 4 6 # Bowel Movements 0 0 3 Result Diagram: 07/13/16 0511 07/13/16 0511 Objective Remarks GENERAL: SKIN: Warm and dry. HEAD: Atraumatic. Normocephalic. EYES: Pupils equal and round. No scleral icterus. No injection or drainage. ENT: No nasal bleeding or discharge. Mucous membranes pink and moist. NECK: Trachea midline. No JVD. CARDIOVASCULAR: Regular rate and rhythm. RESPIRATORY: No accessory muscle use. ascattered ronchi , wheeze auscultation. Breath sounds equal bilaterally. GASTROINTESTINAL: Abdomen soft, non-tender, nondistended. Hepatic and splenic margins not palpable. MUSCULOSKELETAL: Extremities without clubbing, cyanosis, or edema. No obvious deformities. NEUROLOGICAL: Awake and alert. No obvious cranial nerve deficits. Motor grossly within normal limits. Five out of 5 muscle strength in the arms and legs. Normal speech. PSYCHIATRIC: Appropriate mood and affect; insight and judgment normal. Assessment and Plan Assessment and Plan copd exacerbation respiratory failure plan O2 as needed bronchodilators antibiotics increase activity Yany Slade MD July 13, 2016 13:57
[2016-07-13] MEDS: PRAVASTATIN SOD 10 MG TAB PO SCH (21:10)
[2016-07-13] MEDS: CITALOPRAM HYDROBROMIDE 20 MG TAB PO SCH (21:12)
[2016-07-14] VITALS (7 sets, daily range): BP systolic 120–143; BP diastolic 77–87; PULSE 70–95; RESP 16–20; TEMP 96–98.5; O2SAT 90–97
[2016-07-14] MEDS: methylPREDNISolone SOD SUCC 40 MG/1 ML VIAL IV SCH ×4 (03:00→22:49)
[2016-07-14] MEDS: RESP: ALBUTEROL 2.5 MG/IPRATROPIUM 0.5 MG NEB (SCH) INH ×3 (03:53→14:18)
[2016-07-14 06:47] LABS: AUTOMATED NEUTROPHIL # 9.2 TH/MM3 (1.8-7.7); BASOPHIL % 0.1 % (0.0-2.0); EOSINOPHIL % 0.1 % (0.0-4.0); HEMATOCRIT 41.8 % (35.0-46.0); HEMO FLAGS DIFF FINAL; LYMPH % 8.7 % (9.0-44.0); LYMPHOCYTE # 0.9 TH/MM3 (1.0-4.8); MEAN CELL VOLUME 92.1 FL (80.0-100.0); MEAN CORPUSCULAR HEMOGLOBIN 31.1 PG (27.0-34.0); MEAN CORPUSCULAR HGB CONC 33.7 % (32.0-36.0); MONO % 4.1 % (0.0-8.0); PLATELET COUNT 245 TH/MM3 (150-450); RED BLOOD COUNT 4.53 MIL/MM3 (4.00-5.30); WHITE BLOOD COUNT 10.5 TH/MM3 (4.0-11.0)
[2016-07-14] MEDS: ACETAMINOPHEN/HYDROcodone 325 MG/7.5 MG TAB PO PRN ×2 (06:49→10:41)
[2016-07-14 06:51] LABS: CHLORIDE 102 MEQ/L (98-107); POTASSIUM 4.2 MEQ/L (3.5-5.1); SODIUM (NA) 142 MEQ/L (136-145)
[2016-07-14 06:58] LABS: ANION GAP 7 MEQ/L (5-15); BICARBONATE 33.4 MEQ/L (21.0-32.0); BLOOD UREA NITROGEN 15 MG/DL (7-18)
[2016-07-14 07:01] LABS: ALT (GPT) 76 U/L (10-53); AST (GOT) 30 U/L (15-37); GLOMERULAR FILTRATION RATE 114 ML/MIN (>89)
[2016-07-14 07:03] LABS: TOTAL BILIRUBIN ADULT 0.3 MG/DL (0.2-1.0)
[2016-07-14 07:04] LABS: ALKALINE PHOSPHATASE 52 U/L (45-117)
--- NOTE | 2016-07-14 08:23 | HHI.PR ---
Subjective History of Present Illness Patient Shortness of breath cough/ wheezing. not better yet ..no other issue. wants pain medicine to change to percocet and change Duoneb. neublization to every 4 hrs. Review of Systems Constitutional Constitutional: Fatigue, Weakness Pulmonary Respiratory: Coughing, Shortness of Breath, Wheezing Vitals/Results Intake & Output 07/13/16 07/13/16 07/14/16 15:00 23:00 07:00 Intake Total 1190 ml 1000 ml 500 ml Balance 1190 ml 1000 ml 500 ml Intake Oral 840 ml 1000 ml 500 ml IV Total 350 ml # Voids 3 2 3 # Bowel Movements 1 1 Vital Signs Vital Signs Date Time Temp Pulse Resp B/P Pulse Ox O2 Delivery O2 Flow Rate FiO2 07/14/16 00:00 98.5 76 18 143/77 97 07/13/16 21:31 96 Nasal Cannula 2.00 07/13/16 20:00 98.7 103 18 150/90 95 07/13/16 19:00 Nasal Cannula 2.00 07/13/16 18:44 18 07/13/16 16:00 96.7 71 20 129/58 96 07/13/16 12:00 96.9 80 16 121/70 92 07/13/16 09:39 92 Nasal Cannula 2.00 CBC/BMP: 07/14/16 0600 07/14/16 0600 Lab Results Laboratory Tests Test 07/14/16 06:00 White Blood Count 10.5 TH/MM3 Red Blood Count 4.53 MIL/MM3 Hemoglobin 14.1 GM/DL Hematocrit 41.8 % Mean Corpuscular Volume 92.1 FL Mean Corpuscular Hemoglobin 31.1 PG Mean Corpuscular Hemoglobin 33.7 % Concent Red Cell Distribution Width 13.0 % Platelet Count 245 TH/MM3 Mean Platelet Volume 7.9 FL Neutrophils (%) (Auto) 87.0 % Lymphocytes (%) (Auto) 8.7 % Monocytes (%) (Auto) 4.1 % Eosinophils (%) (Auto) 0.1 % Basophils (%) (Auto) 0.1 % Neutrophils # (Auto) 9.2 TH/MM3 Lymphocytes # (Auto) 0.9 TH/MM3 Monocytes # (Auto) 0.4 TH/MM3 Eosinophils # (Auto) 0.0 TH/MM3 Basophils # (Auto) 0.0 TH/MM3 CBC Comment DIFF FINAL Differential Comment Sodium Level 142 MEQ/L Potassium Level 4.2 MEQ/L Chloride Level 102 MEQ/L Carbon Dioxide Level 33.4 MEQ/L Anion Gap 7 MEQ/L Blood Urea Nitrogen 15 MG/DL Creatinine 0.55 MG/DL Estimat Glomerular Filtration 114 ML/MIN Rate Random Glucose 137 MG/DL Calcium Level 8.6 MG/DL Total Bilirubin 0.3 MG/DL Aspartate Amino Transf 30 U/L (AST/SGOT) Alanine Aminotransferase 76 U/L (ALT/SGPT) Alkaline Phosphatase 52 U/L Total Protein 6.0 GM/DL Albumin 3.0 GM/DL Physical Exam General General Appearance: Well Developed, Well Nourished, Comfortable Eyes Eye Exam: Pupils Equal, Pupils Reactive, Sclera White, Extraocular Movement Intact Throat Throat Exam: Oral Mucosa [place] & Moist, Oral Pharynx Normal Neck Neck Exam: Neck Supple, Trachea Midline Pulmonary Resp Exam: Crackles, Rhonchi, Diminished Breath Sounds Resp Remarks Bilateral wheezing. Cardiology CV Exam: Regular, Normal Sinus Rhythm Gastrointestinal/Abdomen GI Exam: Soft, Non-Tender, Bowel Sounds Present Musculoskeletal MS Exam: Normal Tone Integumentary Skin Exam: Clear, Warm, Dry, Intact Extremeties Extremities Exam: No Edema Neurologic Neuro Exam: Alert, Awake, Oriented, Speech Clear, Moving All Extremities, No Focal Deficits Psychiatric Psych Exam: Appropriate Responses VTE Prophylaxis VTE Prophylaxis Meds: Heparin PUD Prophylasis PUD Prophylaxis: Protonix Assessment/Plan Assessment/Plan ASSESSMENT/PLAN 1. This is a 56-year female who came to the ER diagnosed with shortness of breath, cough and wheezing secondary to COPD exacerbation. The patient is on DuoNeb nebulization. patient on Rocephin one gram IV daily and Zithromax 500 mg IV daily. The patient is also on Solu-Medrol 40 mg IV q6-hour. pulmonary input noted for further recommendation per pulmonary. 2. History of hyperlipidemia. Continue home medications. 3. History of depression. Continue home medication. 4. History of arthritis. Continue home medication. 5. History of COPD. Continue the home medication. 6. Diabetes mellitus ADA 1800 calorie diet, NovoLog sliding scale, check blood sugars at bedtime and monitor blood sugar closely. 7. DVT prophylaxis heparin 5000 units subcutaneous twice a day. 8. GI prophylaxis Protonix 40 mg p.o. daily. 9. We are going to manage the patient on a daily basis and make recommendation on a daily basis. Check CBC with diff CMP in AM. Discussed Condition with: Patient Rico Granger MD July 14, 2016 08:23
[2016-07-14] MEDS: METHOCARBAMOL 500 MG TAB PO SCH ×2 (09:07→22:49)
[2016-07-14] MEDS: ENOXAPARIN SODIUM 40 MG/0.4 ML SYRINGE SQ SCH (09:07)
[2016-07-14] MEDS: SODIUM CHLORIDE 0.9% FLUSH 10 ML FLUSH IV FLUSH SCH ×2 (09:08→22:49)
[2016-07-14] MEDS: AZITHROMYCIN INJ 500 MG in SODIUM CHLOR 0.9% 250 ML INJ 250 ML IV SCH (09:08)
[2016-07-14] MEDS: cefTRIAXone INJ 1,000 MG in SODIUM CHLORIDE 0.9% INJ 100 ML IV SCH (09:08)
[2016-07-14] MEDS: oxyCODONE/ACETAMINOPHEN 5 MG/325 MG TAB PO PRN ×3 (15:00→23:35)
[2016-07-14] MEDS ORDERED: RESP: ALBUTEROL 2.5 MG/IPRATROPIUM 0.5 MG NEB (SCH) NEB (16:00)
--- NOTE | 2016-07-14 19:05 | HHI.PR ---
Subjective Remarks alert still with cough and wheeze still congested Objective Vital Signs Date Time Temp Pulse Resp B/P Pulse Ox O2 Delivery O2 Flow Rate FiO2 07/14/16 16:00 96.5 87 20 135/87 92 07/14/16 16:00 18 07/14/16 12:00 96.6 79 20 120/77 91 07/14/16 11:41 18 07/14/16 08:47 90 Nasal Cannula 2.00 07/14/16 08:00 Nasal Cannula 2.00 07/14/16 08:00 96.0 70 20 133/80 91 07/14/16 00:00 98.5 76 18 143/77 97 07/13/16 21:31 96 Nasal Cannula 2.00 07/13/16 20:00 98.7 103 18 150/90 95 I/O 07/13/16 07/13/16 07/13/16 07/14/16 07/14/16 07/14/16 07:00 15:00 23:00 07:00 15:00 23:00 Intake Total 660 ml 1190 ml 1000 ml 500 ml 720 ml Balance 660 ml 1190 ml 1000 ml 500 ml 720 ml Intake Oral 660 ml 840 ml 1000 ml 500 ml 720 ml IV Total 350 ml # Voids 6 3 2 3 3 # Bowel Movements 3 1 1 1 Result Diagram: 07/14/16 0607/14/16 06 Objective Remarks GENERAL: SKIN: Warm and dry. HEAD: Atraumatic. Normocephalic. EYES: Pupils equal and round. No scleral icterus. No injection or drainage. ENT: No nasal bleeding or discharge. Mucous membranes pink and moist. NECK: Trachea midline. No JVD. CARDIOVASCULAR: Regular rate and rhythm. RESPIRATORY: No accessory muscle use. scattered rhonchi , wheeze auscultation. Breath sounds equal bilaterally. GASTROINTESTINAL: Abdomen soft, non-tender, nondistended. Hepatic and splenic margins not palpable. MUSCULOSKELETAL: Extremities without clubbing, cyanosis, or edema. No obvious deformities. NEUROLOGICAL: Awake and alert. No obvious cranial nerve deficits. Motor grossly within normal limits. Five out of 5 muscle strength in the arms and legs. Normal speech. PSYCHIATRIC: Appropriate mood and affect; insight and judgment normal. Assessment and Plan Assessment and Plan copd exacerbation respiratory failure plan O2 as needed bronchodilators antibiotics increase activity Yany Slade MD July 14, 2016 19:05
[2016-07-14] MEDS: PRAVASTATIN SOD 10 MG TAB PO SCH (22:49)
[2016-07-14] MEDS: CITALOPRAM HYDROBROMIDE 20 MG TAB PO SCH (22:49)
[2016-07-15] VITALS (8 sets, daily range): BP systolic 119–126; BP diastolic 66–86; PULSE 83–95; RESP 16–22; TEMP 96–98.7; O2SAT 90–95
[2016-07-15] MEDS: RESP: ALBUTEROL 2.5 MG/IPRATROPIUM 0.5 MG NEB (SCH) NEB ×7 (00:14→23:54)
[2016-07-15] MEDS: methylPREDNISolone SOD SUCC 40 MG/1 ML VIAL IV SCH ×4 (02:06→21:57)
[2016-07-15] MEDS: oxyCODONE/ACETAMINOPHEN 5 MG/325 MG TAB PO PRN ×5 (03:45→21:55)
[2016-07-15 07:28] LABS: AUTOMATED NEUTROPHIL # 8.2 TH/MM3 (1.8-7.7); BASOPHIL % 0.2 % (0.0-2.0); EOSINOPHIL % 0.2 % (0.0-4.0); HEMO FLAGS DIFF FINAL; LYMPH % 6.7 % (9.0-44.0); LYMPHOCYTE # 0.6 TH/MM3 (1.0-4.8); MEAN CELL VOLUME 92.7 FL (80.0-100.0); MEAN CORPUSCULAR HEMOGLOBIN 30.9 PG (27.0-34.0); MEAN CORPUSCULAR HGB CONC 33.3 % (32.0-36.0); MONO % 1.7 % (0.0-8.0); NEUT % 91.2 % (16.0-70.0); PLATELET COUNT 238 TH/MM3 (150-450); RED BLOOD COUNT 4.75 MIL/MM3 (4.00-5.30); RED CELL DISTRIBUTION WIDTH 13.3 % (11.6-17.2)
[2016-07-15 07:35] LABS: CHLORIDE 99 MEQ/L (98-107); POTASSIUM 4.4 MEQ/L (3.5-5.1); SODIUM (NA) 141 MEQ/L (136-145)
[2016-07-15 07:48] LABS: ANION GAP 6 MEQ/L (5-15)
[2016-07-15 07:49] LABS: BLOOD UREA NITROGEN 15 MG/DL (7-18)
[2016-07-15 07:51] LABS: AST (GOT) 24 U/L (15-37)
[2016-07-15 07:52] LABS: GLOMERULAR FILTRATION RATE 96 ML/MIN (>89)
[2016-07-15 07:53] LABS: ALT (GPT) 92 U/L (10-53); TOTAL BILIRUBIN ADULT 0.3 MG/DL (0.2-1.0)
[2016-07-15 07:54] LABS: ALKALINE PHOSPHATASE 51 U/L (45-117)
[2016-07-15] MEDS: METHOCARBAMOL 500 MG TAB PO SCH ×2 (08:33→21:56)
[2016-07-15] MEDS: ENOXAPARIN SODIUM 40 MG/0.4 ML SYRINGE SQ SCH (08:33)
[2016-07-15] MEDS: SODIUM CHLORIDE 0.9% FLUSH 10 ML FLUSH IV FLUSH SCH ×2 (08:33→21:56)
--- NOTE | 2016-07-15 09:26 | HHI.PR ---
Subjective History of Present Illness Patient Shortness of breath cough/ wheezing better today ..no other issue. pain medicine to changed to percocet and change Duoneb. neublization to every 4 hrs. Review of Systems Constitutional Constitutional: Fatigue, Weakness Pulmonary Respiratory: Coughing, Shortness of Breath, Wheezing Vitals/Results Intake & Output 07/14/16 07/14/16 07/15/16 15:00 23:00 07:00 Intake Total 720 ml Balance 720 ml Intake Oral 720 ml # Voids 3 4 # Bowel Movements 1 0 Vital Signs Vital Signs Date Time Temp Pulse Resp B/P Pulse Ox O2 Delivery O2 Flow Rate FiO2 07/15/16 08:10 93 Nasal Cannula 2.00 07/15/16 08:00 98.0 91 18 121/86 90 07/15/16 00:58 98.0 83 22 126/66 95 07/14/16 21:32 98.0 95 16 141/80 90 07/14/16 19:40 95 Nasal Cannula 2.00 07/14/16 19:00 96 Nasal Cannula 2.00 07/14/16 16:00 96.5 87 20 135/87 92 07/14/16 16:00 18 07/14/16 12:00 96.6 79 20 120/77 91 07/14/16 11:41 18 CBC/BMP: 07/15/16 0645 07/15/16 0645 Lab Results Laboratory Tests Test 07/15/16 06:45 White Blood Count 9.0 TH/MM3 Red Blood Count 4.75 MIL/MM3 Hemoglobin 14.6 GM/DL Hematocrit 44.0 % Mean Corpuscular Volume 92.7 FL Mean Corpuscular Hemoglobin 30.9 PG Mean Corpuscular Hemoglobin 33.3 % Concent Red Cell Distribution Width 13.3 % Platelet Count 238 TH/MM3 Mean Platelet Volume 7.9 FL Neutrophils (%) (Auto) 91.2 % Lymphocytes (%) (Auto) 6.7 % Monocytes (%) (Auto) 1.7 % Eosinophils (%) (Auto) 0.2 % Basophils (%) (Auto) 0.2 % Neutrophils # (Auto) 8.2 TH/MM3 Lymphocytes # (Auto) 0.6 TH/MM3 Monocytes # (Auto) 0.2 TH/MM3 Eosinophils # (Auto) 0.0 TH/MM3 Basophils # (Auto) 0.0 TH/MM3 CBC Comment DIFF FINAL Differential Comment Sodium Level 141 MEQ/L Potassium Level 4.4 MEQ/L Chloride Level 99 MEQ/L Carbon Dioxide Level 36.0 MEQ/L Anion Gap 6 MEQ/L Blood Urea Nitrogen 15 MG/DL Creatinine 0.64 MG/DL Estimat Glomerular Filtration 96 ML/MIN Rate Random Glucose 148 MG/DL Calcium Level 8.6 MG/DL Total Bilirubin 0.3 MG/DL Aspartate Amino Transf 24 U/L (AST/SGOT) Alanine Aminotransferase 92 U/L (ALT/SGPT) Alkaline Phosphatase 51 U/L Total Protein 6.2 GM/DL Albumin 3.0 GM/DL Physical Exam General General Appearance: Well Developed, Well Nourished, Comfortable Eyes Eye Exam: Pupils Equal, Pupils Reactive, Sclera White, Extraocular Movement Intact Throat Throat Exam: Oral Mucosa [place] & Moist, Oral Pharynx Normal Neck Neck Exam: Neck Supple, Trachea Midline Pulmonary Resp Exam: Crackles, Rhonchi, Diminished Breath Sounds Resp Remarks Bilateral wheezing. Cardiology CV Exam: Regular, Normal Sinus Rhythm Gastrointestinal/Abdomen GI Exam: Soft, Non-Tender, Bowel Sounds Present Musculoskeletal MS Exam: Normal Tone Integumentary Skin Exam: Clear, Warm, Dry, Intact Extremeties Extremities Exam: No Edema Neurologic Neuro Exam: Alert, Awake, Oriented, Speech Clear, Moving All Extremities, No Focal Deficits Psychiatric Psych Exam: Appropriate Responses VTE Prophylaxis VTE Prophylaxis Meds: Heparin PUD Prophylasis PUD Prophylaxis: Protonix Assessment/Plan Assessment/Plan ASSESSMENT/PLAN 1. This is a 56-year female who came to the ER diagnosed with shortness of breath, cough and wheezing secondary to COPD exacerbation. The patient is on DuoNeb nebulization. patient on Rocephin one gram IV daily and Zithromax 500 mg IV daily. The patient is also on Solu-Medrol 40 mg IV q6-hour. pulmonary input noted for further recommendation per pulmonary. 2. History of hyperlipidemia. Continue home medications. 3. History of depression. Continue home medication. 4. History of arthritis. Continue home medication. 5. History of COPD. Continue the home medication. 6. Diabetes mellitus ADA 1800 calorie diet, NovoLog sliding scale, check blood sugars at bedtime and monitor blood sugar closely. 7. DVT prophylaxis heparin 5000 units subcutaneous twice a day. 8. GI prophylaxis Protonix 40 mg p.o. daily. 9. We are going to manage the patient on a daily basis and make recommendation on a daily basis. Check CBC with diff CMP in AM. Discussed Condition with: Patient Rico Granger MD July 15, 2016 09:26
[2016-07-15] MEDS: AZITHROMYCIN 250 MG TAB PO SCH (12:27)
[2016-07-15] MEDS: cefTRIAXone INJ 1,000 MG in SODIUM CHLORIDE 0.9% INJ 100 ML IV SCH (12:27)
--- NOTE | 2016-07-15 17:48 | HHI.PR ---
Subjective Remarks 56 YOWF with COPD exac, anxiety has cough, not able to expactorate no fever Objective Vital Signs Vital Signs Date Time Temp Pulse Resp B/P Pulse Ox O2 Delivery O2 Flow Rate FiO2 07/15/16 16:00 96.0 95 20 120/81 90 07/15/16 12:00 97.3 93 21 119/84 91 07/15/16 08:10 93 Nasal Cannula 2.00 07/15/16 08:00 98.0 91 18 121/86 90 07/15/16 00:58 98.0 83 22 126/66 95 07/14/16 21:32 98.0 95 16 141/80 90 07/14/16 19:40 95 Nasal Cannula 2.00 07/14/16 19:00 96 Nasal Cannula 2.00 I/O 07/14/16 07/14/16 07/14/16 07/15/16 07/15/16 07/15/16 07:00 15:00 23:00 07:00 15:00 23:00 Intake Total 500 ml 720 ml 550 ml Balance 500 ml 720 ml 550 ml Intake Oral 500 ml 720 ml 550 ml # Voids 3 3 4 2 # Bowel Movements 1 1 0 0 Result Diagram: 07/15/16 0645 07/15/16 0645 Objective Remarks GENERAL: WBWn WF,NAD SKIN: Warm and dry. HEAD: Normocephalic. EYES: No scleral icterus. No injection or drainage. NECK: Supple, trachea midline. No JVD or lymphadenopathy. CARDIOVASCULAR: Regular rate and rhythm without murmurs, gallops, or rubs. RESPIRATORY: Breath sounds equal bilaterally. No accessory muscle use. GASTROINTESTINAL: Abdomen soft, non-tender, nondistended. MUSCULOSKELETAL: No cyanosis, or edema. BACK: Nontender without obvious deformity. No CVA tenderness. A/P Assessment and Plan COPD exac Bronchitis anxiety Ch. Pain PLAN: Aerosol nebs IV Solumedrol cont Abx Acapella Wean 02 Pio Landa MD July 15, 2016 17:48
[2016-07-15] MEDS: PRAVASTATIN SOD 10 MG TAB PO SCH (21:56)
[2016-07-15] MEDS: CITALOPRAM HYDROBROMIDE 20 MG TAB PO SCH (21:56)
[2016-07-16] VITALS (9 sets, daily range): BP systolic 100–135; BP diastolic 66–76; PULSE 82–102; RESP 15–22; TEMP 97.8–98.2; O2SAT 93–96
[2016-07-16] MEDS: oxyCODONE/ACETAMINOPHEN 5 MG/325 MG TAB PO PRN ×5 (02:14→22:57)
[2016-07-16] MEDS: methylPREDNISolone SOD SUCC 40 MG/1 ML VIAL IV SCH ×2 (02:15→08:40)
[2016-07-16] MEDS: RESP: ALBUTEROL 2.5 MG/IPRATROPIUM 0.5 MG NEB (SCH) NEB ×6 (03:59→23:46)
[2016-07-16 07:28] LABS: AUTOMATED NEUTROPHIL # 10.4 TH/MM3 (1.8-7.7); BASOPHIL % 0.1 % (0.0-2.0); EOSINOPHIL # 0.1 TH/MM3 (0-0.4); EOSINOPHIL % 1.1 % (0.0-4.0); HEMATOCRIT 44.9 % (35.0-46.0); HEMO FLAGS DIFF FINAL; LYMPH % 5.6 % (9.0-44.0); LYMPHOCYTE # 0.6 TH/MM3 (1.0-4.8); MEAN CORPUSCULAR HEMOGLOBIN 30.8 PG (27.0-34.0); MEAN CORPUSCULAR HGB CONC 33.4 % (32.0-36.0); MONO % 1.8 % (0.0-8.0); NEUT % 91.4 % (16.0-70.0); PLATELET COUNT 274 TH/MM3 (150-450); RED BLOOD COUNT 4.88 MIL/MM3 (4.00-5.30); RED CELL DISTRIBUTION WIDTH 13.3 % (11.6-17.2); WHITE BLOOD COUNT 11.3 TH/MM3 (4.0-11.0)
[2016-07-16 07:40] LABS: CHLORIDE 98 MEQ/L (98-107); POTASSIUM 4.1 MEQ/L (3.5-5.1); SODIUM (NA) 139 MEQ/L (136-145)
[2016-07-16 07:53] LABS: ANION GAP 6 MEQ/L (5-15); BICARBONATE 34.8 MEQ/L (21.0-32.0)
[2016-07-16 07:54] LABS: BLOOD UREA NITROGEN 14 MG/DL (7-18)
[2016-07-16 07:56] LABS: ALT (GPT) 77 U/L (10-53); AST (GOT) 17 U/L (15-37)
[2016-07-16 07:57] LABS: GLOMERULAR FILTRATION RATE 98 ML/MIN (>89); TOTAL BILIRUBIN ADULT 0.3 MG/DL (0.2-1.0)
[2016-07-16 07:59] LABS: ALKALINE PHOSPHATASE 50 U/L (45-117)
[2016-07-16] MEDS: ENOXAPARIN SODIUM 40 MG/0.4 ML SYRINGE SQ SCH (08:40)
[2016-07-16] MEDS: cefTRIAXone INJ 1,000 MG in SODIUM CHLORIDE 0.9% INJ 100 ML IV SCH (08:41)
[2016-07-16] MEDS: METHOCARBAMOL 500 MG TAB PO SCH ×2 (08:41→20:30)
[2016-07-16] MEDS: SODIUM CHLORIDE 0.9% FLUSH 10 ML FLUSH IV FLUSH SCH ×2 (08:41→20:28)
--- NOTE | 2016-07-16 10:41 | HHI.PR ---
Subjective History of Present Illness Patient Shortness of breath cough/ wheezing better today ..no other issue. .. d /w RN Ambrocio Mosqueda Review of Systems Constitutional Constitutional: Fatigue, Weakness Pulmonary Respiratory: Coughing, Shortness of Breath, Wheezing Vitals/Results Intake & Output 07/15/16 07/15/16 07/16/16 15:00 23:00 07:00 Intake Total 550 ml Balance 550 ml Intake Oral 550 ml # Voids 2 6 # Bowel Movements 0 1 Vital Signs Vital Signs Date Time Temp Pulse Resp B/P Pulse Ox O2 Delivery O2 Flow Rate FiO2 07/16/16 09:44 Nasal Cannula 2.00 07/16/16 08:38 97.8 102 15 135/66 95 07/16/16 07:40 95 Nasal Cannula 2.00 07/16/16 04:00 98.2 85 22 120/74 93 07/16/16 02:18 82 18 95 07/16/16 00:00 98.0 85 18 127/76 94 07/15/16 22:00 87 16 95 07/15/16 21:33 98.7 88 16 125/77 94 07/15/16 20:29 92 Nasal Cannula 2.00 07/15/16 19:00 95 Nasal Cannula 2.00 07/15/16 16:00 96.0 95 20 120/81 90 07/15/16 12:00 97.3 93 21 119/84 91 CBC/BMP: 07/16/16 0707 07/16/16 0707 Lab Results Laboratory Tests Test 07/16/16 07:07 White Blood Count 11.3 TH/MM3 Red Blood Count 4.88 MIL/MM3 Hemoglobin 15.0 GM/DL Hematocrit 44.9 % Mean Corpuscular Volume 92.0 FL Mean Corpuscular Hemoglobin 30.8 PG Mean Corpuscular Hemoglobin 33.4 % Concent Red Cell Distribution Width 13.3 % Platelet Count 274 TH/MM3 Mean Platelet Volume 7.6 FL Neutrophils (%) (Auto) 91.4 % Lymphocytes (%) (Auto) 5.6 % Monocytes (%) (Auto) 1.8 % Eosinophils (%) (Auto) 1.1 % Basophils (%) (Auto) 0.1 % Neutrophils # (Auto) 10.4 TH/MM3 Lymphocytes # (Auto) 0.6 TH/MM3 Monocytes # (Auto) 0.2 TH/MM3 Eosinophils # (Auto) 0.1 TH/MM3 Basophils # (Auto) 0.0 TH/MM3 CBC Comment DIFF FINAL Differential Comment Sodium Level 139 MEQ/L Potassium Level 4.1 MEQ/L Chloride Level 98 MEQ/L Carbon Dioxide Level 34.8 MEQ/L Anion Gap 6 MEQ/L Blood Urea Nitrogen 14 MG/DL Creatinine 0.63 MG/DL Estimat Glomerular Filtration 98 ML/MIN Rate Random Glucose 155 MG/DL Calcium Level 8.8 MG/DL Total Bilirubin 0.3 MG/DL Aspartate Amino Transf 17 U/L (AST/SGOT) Alanine Aminotransferase 77 U/L (ALT/SGPT) Alkaline Phosphatase 50 U/L Total Protein 6.3 GM/DL Albumin 3.1 GM/DL Physical Exam General General Appearance: Well Developed, Well Nourished, Comfortable Eyes Eye Exam: Pupils Equal, Pupils Reactive, Sclera White, Extraocular Movement Intact Throat Throat Exam: Oral Mucosa [place] & Moist, Oral Pharynx Normal Neck Neck Exam: Neck Supple, Trachea Midline Pulmonary Resp Exam: Crackles, Rhonchi, Diminished Breath Sounds Resp Remarks Bilateral wheezing. Cardiology CV Exam: Regular, Normal Sinus Rhythm Gastrointestinal/Abdomen GI Exam: Soft, Non-Tender, Bowel Sounds Present Musculoskeletal MS Exam: Normal Tone Integumentary Skin Exam: Clear, Warm, Dry, Intact Extremeties Extremities Exam: No Edema Neurologic Neuro Exam: Alert, Awake, Oriented, Speech Clear, Moving All Extremities, No Focal Deficits Psychiatric Psych Exam: Appropriate Responses VTE Prophylaxis VTE Prophylaxis Meds: Heparin PUD Prophylasis PUD Prophylaxis: Protonix Assessment/Plan Assessment/Plan ASSESSMENT/PLAN 1. This is a 56-year female who came to the ER diagnosed with shortness of breath, cough and wheezing secondary to COPD exacerbation. The patient is on DuoNeb nebulization. patient on Rocephin one gram IV daily and Zithromax 500 mg IV daily. The patient is also on Solu-Medrol 40 mg IV q6-hour. pulmonary input noted for further recommendation per pulmonary. 2. History of hyperlipidemia. Continue home medications. 3. History of depression. Continue home medication. 4. History of arthritis. Continue home medication. 5. History of COPD. Continue the home medication. 6. Diabetes mellitus ADA 1800 calorie diet, NovoLog sliding scale, check blood sugars at bedtime and monitor blood sugar closely. 7. DVT prophylaxis heparin 5000 units subcutaneous twice a day. 8. GI prophylaxis Protonix 40 mg p.o. daily. 9. We are going to manage the patient on a daily basis and make recommendation on a daily basis. Check CBC with diff CMP in AM. Discussed Condition with: Patient Rico Granger MD July 16, 2016 10:41
[2016-07-16] MEDS: AZITHROMYCIN 250 MG TAB PO SCH (10:58)
[2016-07-16] MEDS: predniSONE 20 MG TAB PO SCH ×2 (14:08→20:30)
[2016-07-16] MEDS: PRAVASTATIN SOD 10 MG TAB PO SCH (20:30)
[2016-07-16] MEDS: CITALOPRAM HYDROBROMIDE 20 MG TAB PO SCH (20:30)
[2016-07-17 00:34] VITALS: BP 130/73; PULSE 74; RESP 16; TEMP 98; O2SAT 96
[2016-07-17] MEDS: RESP: ALBUTEROL 2.5 MG/IPRATROPIUM 0.5 MG NEB (SCH) NEB ×2 (04:20→07:36)
[2016-07-17 07:26] VITALS: O2SAT 94
[2016-07-17] MEDS: oxyCODONE/ACETAMINOPHEN 5 MG/325 MG TAB PO PRN (07:38)
[2016-07-17 08:00] VITALS: BP 110/82; PULSE 82; RESP 20; TEMP 96.4; O2SAT 94
[2016-07-17 08:37] LABS: BASOPHIL % 0.1 % (0.0-2.0); HEMATOCRIT 46.5 % (35.0-46.0); HEMO FLAGS DIFF FINAL; LYMPH % 13.2 % (9.0-44.0); LYMPHOCYTE # 1.5 TH/MM3 (1.0-4.8); MEAN CELL VOLUME 92.2 FL (80.0-100.0); MEAN CORPUSCULAR HEMOGLOBIN 30.4 PG (27.0-34.0); MONO % 4.4 % (0.0-8.0); NEUT % 82.3 % (16.0-70.0); PLATELET COUNT 259 TH/MM3 (150-450); RED BLOOD COUNT 5.04 MIL/MM3 (4.00-5.30)
[2016-07-17] MEDS: predniSONE 20 MG TAB PO SCH (08:38)
[2016-07-17] MEDS: METHOCARBAMOL 500 MG TAB PO SCH (08:38)
[2016-07-17] MEDS: ENOXAPARIN SODIUM 40 MG/0.4 ML SYRINGE SQ SCH (08:38)
[2016-07-17] MEDS: SODIUM CHLORIDE 0.9% FLUSH 10 ML FLUSH IV FLUSH SCH (08:41)
[2016-07-17 08:51] LABS: CHLORIDE 97 MEQ/L (98-107); POTASSIUM 4.4 MEQ/L (3.5-5.1); SODIUM (NA) 141 MEQ/L (136-145)
[2016-07-17 08:57] LABS: ANION GAP 6 MEQ/L (5-15); BICARBONATE 38.4 MEQ/L (21.0-32.0); BLOOD UREA NITROGEN 17 MG/DL (7-18)
[2016-07-17 09:00] LABS: ALT (GPT) 68 U/L (10-53); AST (GOT) 20 U/L (15-37); GLOMERULAR FILTRATION RATE 117 ML/MIN (>89)
[2016-07-17 09:02] LABS: TOTAL BILIRUBIN ADULT 0.4 MG/DL (0.2-1.0)
[2016-07-17 09:03] LABS: ALKALINE PHOSPHATASE 49 U/L (45-117)
--- NOTE | 2016-07-17 09:03 | HHI.PR ---
Subjective History of Present Illness Patient Shortness of breath cough/ wheezing better today ..no other issue. .. d /w HILARIO klein to dc home today. Review of Systems Constitutional Constitutional: Fatigue, Weakness Pulmonary Respiratory: Coughing, Shortness of Breath, Wheezing Vitals/Results Intake & Output 07/16/16 07/16/16 07/17/16 15:00 23:00 07:00 Intake Total 900 ml Balance 900 ml Intake Oral 900 ml # Voids 5 6 # Bowel Movements 1 Vital Signs Vital Signs Date Time Temp Pulse Resp B/P Pulse Ox O2 Delivery O2 Flow Rate FiO2 07/17/16 08:00 96.4 82 20 110/82 94 07/17/16 07:26 94 Nasal Cannula 2.00 07/17/16 04:45 07/17/16 00:34 98.0 74 16 130/73 96 07/16/16 23:57 18 07/16/16 22:35 97.9 93 22 100/72 93 07/16/16 20:49 93 Nasal Cannula 2.00 07/16/16 19:00 Nasal Cannula 2.00 07/16/16 16:00 98.0 88 18 107/72 93 07/16/16 12:00 97.8 90 18 129/76 96 07/16/16 09:44 Nasal Cannula 2.00 CBC/BMP: 07/17/16 0656 07/17/16 0656 Lab Results Laboratory Tests Test 07/17/16 06:56 White Blood Count 11.0 TH/MM3 Red Blood Count 5.04 MIL/MM3 Hemoglobin 15.3 GM/DL Hematocrit 46.5 % Mean Corpuscular Volume 92.2 FL Mean Corpuscular Hemoglobin 30.4 PG Mean Corpuscular Hemoglobin 33.0 % Concent Red Cell Distribution Width 13.0 % Platelet Count 259 TH/MM3 Mean Platelet Volume 8.0 FL Neutrophils (%) (Auto) 82.3 % Lymphocytes (%) (Auto) 13.2 % Monocytes (%) (Auto) 4.4 % Eosinophils (%) (Auto) 0.0 % Basophils (%) (Auto) 0.1 % Neutrophils # (Auto) 9.0 TH/MM3 Lymphocytes # (Auto) 1.5 TH/MM3 Monocytes # (Auto) 0.5 TH/MM3 Eosinophils # (Auto) 0.0 TH/MM3 Basophils # (Auto) 0.0 TH/MM3 CBC Comment DIFF FINAL Differential Comment Sodium Level 141 MEQ/L Potassium Level 4.4 MEQ/L Chloride Level 97 MEQ/L Carbon Dioxide Level 38.4 MEQ/L Anion Gap 6 MEQ/L Blood Urea Nitrogen 17 MG/DL Creatinine 0.54 MG/DL Estimat Glomerular Filtration 117 ML/MIN Rate Random Glucose 105 MG/DL Calcium Level 9.0 MG/DL Total Bilirubin 0.4 MG/DL Aspartate Amino Transf 20 U/L (AST/SGOT) Alanine Aminotransferase 68 U/L (ALT/SGPT) Albumin 3.1 GM/DL Physical Exam General General Appearance: Well Developed, Well Nourished, Comfortable Eyes Eye Exam: Pupils Equal, Pupils Reactive, Sclera White, Extraocular Movement Intact Throat Throat Exam: Oral Mucosa [place] & Moist, Oral Pharynx Normal Neck Neck Exam: Neck Supple, Trachea Midline Pulmonary Resp Exam: Crackles, Rhonchi, Diminished Breath Sounds Resp Remarks Bilateral wheezing. Cardiology CV Exam: Regular, Normal Sinus Rhythm Gastrointestinal/Abdomen GI Exam: Soft, Non-Tender, Bowel Sounds Present Musculoskeletal MS Exam: Normal Tone Integumentary Skin Exam: Clear, Warm, Dry, Intact Extremeties Extremities Exam: No Edema Neurologic Neuro Exam: Alert, Awake, Oriented, Speech Clear, Moving All Extremities, No Focal Deficits Psychiatric Psych Exam: Appropriate Responses VTE Prophylaxis VTE Prophylaxis Meds: Heparin PUD Prophylasis PUD Prophylaxis: Protonix Assessment/Plan Assessment/Plan ASSESSMENT/PLAN 1. This is a 56-year female who came to the ER diagnosed with shortness of breath, cough and wheezing secondary to COPD exacerbation. The patient is on DuoNeb nebulization. patient on Rocephin one gram IV daily and Zithromax 500 mg IV daily. The patient is also on prednisone 20 mg PO BID... pulmonary input noted for further recommendation per pulmonary. 2. History of hyperlipidemia. Continue home medications. 3. History of depression. Continue home medication. 4. History of arthritis. Continue home medication. 5. History of COPD. Continue the home medication. 6. Diabetes mellitus ADA 1800 calorie diet, NovoLog sliding scale, check blood sugars at bedtime and monitor blood sugar closely. 7. DVT prophylaxis heparin 5000 units subcutaneous twice a day. 8. GI prophylaxis Protonix 40 mg p.o. daily. ok to dc home today. f/u with pcp/ pulmonary 1 week. Discussed Condition with: Patient Rico Granger MD July 17, 2016 09:03 Rico Granger MD July 17, 2016 09:03
[2016-07-17] MEDS ORDERED: AZIT250T3 PO (10:30)
[2016-07-17] MEDS ORDERED: CEFU1TAB20 PO (10:30)
--- NOTE | 2016-07-17 12:30 | MD ---
cc: YANET BOYD MD ADMISSION DATE: 07/14/2016 DISCHARGE DATE: 07/17/2016 DISPOSITION: Okay to discharge patient. CONDITION AT THE TIME OF DISCHARGE: Satisfactory. DISCHARGE ACTIVITY: As tolerated. DISCHARGE DIET: Cardiac, ADA 1800-calorie diet. ALLERGIES: CORTISONE. DISCHARGE MEDICATIONS: Include 1. Zithromax 500 milligrams p.o. daily. 2. Ceftin 5 milligrams p.o. twice a day. 3. Albuterol. 4. ProAir HFA 90 micrograms 2 puff inhalation q.4-6 h. 5. Symbicort 160 / 4.5 micrograms 2 puffs inhalation twice a day. 6. Zyrtec 10 milligrams p.o. daily. 7. Citalopram 10 milligrams p.o. daily. 8. Vicodin ES 7.5 milligrams p.o. q.6 h. 9. DuoNeb nebulization q.4-6 h p.r.n. shortness of breath. 10. Metformin 500 milligrams p.o. daily. 11. Robaxin 5 milligrams p.o. twice a day. 12. Pravastatin 10 milligrams p.o. at bedtime. 13. Prednisone 5 milligrams p.o. daily. 14. Theophylline 400 milligrams p.o. daily. DISCHARGE INSTRUCTIONS: The patient was advised to full with primary care physician and the pulmonary doctor. ADMISSION DIAGNOSIS: 1. Shortness of breath secondary to COPD exacerbation. The patient was given DuoNeb nebulization. The patient was also given Rocephin IV and Zithromax IV and also the patient was given Solu-Medrol IV. Pulmonology, Dr. Slade, saw the patient. The patient's condition improved. The patient was stable for discharge. 2. History of hyperlipidemia. 3. Depression. 4. Arthritis. 5. COPD. 6. Diabetes mellitus. HOSPITAL COURSE: This is a 56-year-old female admitted with shortness of breath. The patient was getting IV Solu-Medrol and IV Levaquin at Dr. Lucas' office but she did not improve. The patient decided to come to the [facility] where she was admitted and given IV Rocephin and Zithromax. The patient's condition improved. The patient remained stable. The patient's steroid taper was done by Dr. Yany Slade who saw the patient during the hospital stay. The patient was discharged in satisfactory condition. The patient's chest x-ray was done showing nothing acute. The patient had mild leukocytosis, which resolved. Further details in the medical record. Yanet Boyd MD EA/PINA /10:35 AM /12:23 PM
== END 2016-07-17 11:14 | disposition home or self-care (01) | DRG 190 ==
LOC: PHED 03:29 → INTOOBSV 05:18 → PHEDA 05:18 → PH3B 07:54 → OBSVTOIN 07-14 08:24
PROVIDERS: ADMIT Family Medicine; ATTEND Family Medicine
DX: J44.1 Chronic obstructive pulmonary disease with (acute) exacerbation (principal); J96.90 Respiratory failure, unspecified, unspecified whether with hypoxia or hypercapnia; I10 Essential (primary) hypertension; F32.9 Major depressive disorder, single episode, unspecified; E11.9 Type 2 diabetes mellitus without complications; D72.829 Elevated white blood cell count, unspecified; F41.9 Anxiety disorder, unspecified; G43.909 Migraine, unspecified, not intractable, without status migrainosus; F17.210 Nicotine dependence, cigarettes, uncomplicated; E78.5 Hyperlipidemia, unspecified; G47.33 Obstructive sleep apnea (adult) (pediatric); M19.90 Unspecified osteoarthritis, unspecified site; Z79.84 Long term (current) use of oral hypoglycemic drugs
CPT/HCPCS: 36600; 71010; 80053; 82805; 83880; 85025; 93005; 94150; 94640; 94664; 94667; 94668; 96374; J0456; J0696; J1650; J2270; J2920; J2930; J7050; J7512; J7613